=== PATIENT | male | born 1960 | race African-American/Black ===

== ENCOUNTER 2016-11-18 17:57 | Inpatient (IN) | payer BC ==
--- NOTE | 2016-11-18 18:08 | PCM.HP ---
H&P History of Present Illness - General Date of Service: 11/18/16 Admit Problem/Dx: Weakness Source of Information: Patient, Family, Old Records, Provider, RN Notes Reviewed History Limitations: Reports: Physical Impairment - History of Present Illness Initial Comments - Free Text/Narative: This is a 56-year-old black male with past medical history of hypertension history of hypertension and pre-diabetes urinary frequency who comes in with c/ o three-week history of generalized weakness. His chief of complaint is associated with fatigue, 12 pound weight loss and rapid heart rate. Patient was initially seen at the local clinic today and he was found to be septic sepsis. Patient carries a history of slow non-healing skin/soft tissue infection that has been going on for 6 months now. He has been on numerous oral antibiotics along with outpatient wound care. Per daughter who was present at bedside, patient is stubborn and he doesn't follow routine medical care. His initial workup at the clinic shows a CBC remarkable for white blood cell count of 3.5, RBC of 3.29, hemoglobin of 9, hematocrit of 27.1, and platelet count of 157. His chemistry is remarkable for sodium of 132, BUN of 43, creatinine 1.9, total protein of 9.2, albumin of 2.7, 88 ALT of 102, and AST of 108. His CRP is 1.4. Urinalysis is not impressive to suggest urinary tract infection however it has 3+ protein. His EKG from the clinic shows sinus tachycardia with a heart rate of 116. Patient was sent over to us from the clinic as a direct admit for sepsis secondary to non-healing left arm wound. Patient will be admitted to Med-Surg floor with telemetry. He is full code. - Related Data Allergies/Adverse Reactions: Allergies Allergy/AdvReac Type Severity Reaction Status Date / Time No Known Drug Allergies Allergy Other Verified 11/18/16 18:12 Home Medications: Home Meds amLODIPine [Norvasc] 5 mg PO BEDTIME 11/18/16 [History] metFORMIN [Glucophage] 500 mg PO WITHDINNER 11/18/16 [History] traMADol HCl [Tramadol HCl] 50 mg PO DAILY 11/18/16 [History] H&P Review of Systems - Review of Systems: Review Of Systems: See Below General: Reports: Weakness, Fatigue, Weight Loss. Denies: Fever, Chills HEENT: Reports: No Symptoms Pulmonary: Denies: Shortness of Breath Cardiovascular: Denies: Chest Pain Gastrointestinal: Denies: Abdominal Pain, Nausea, Vomiting Genitourinary: Denies: No Symptoms Musculoskeletal: Reports: Arm Pain, Muscle Pain. Denies: No Symptoms Skin: Reports: Erythema, Wound (open wound on left arm). Denies: Cyanosis, Jaundice Psychiatric: Denies: Depression, Anxiety, Agitation, Hallucinations Neurological: Reports: Weakness. Denies: Confusion, Dizziness, Seizure, Difficulty Walking, Gait Disturbance Hematologic/Lymphatic: Denies: Easy Bleeding, Easy Bruising Immunologic: Reports: No Symptoms Exam - Exam Exam: See Below - Exam General: Alert, Oriented, Cooperative, Mild Distress HEENT: Conjunctiva Clear, EOMI, Hearing Intact, Mucosa Moist & [place], Nares Patent, Normal Nasal Septum, Posterior Pharynx Clear, Pupils Equal, Pupils Reactive Neck: Supple, Trachea Midline, +2 Carotid Pulse wo Bruit, Full Range of Motion Lungs: Clear to Auscultation, Normal Respiratory Effort Cardiovascular: Regular Rate, Regular Rhythm Abdomen: Normal Bowel Sounds, Soft. No: Organomegaly, Tenderness (Male) Exam: Other (Non-tender pubic on palpation). No: Penile Lesions, Urethral Discharge Rectal (Males) Exam: Deferred Back Exam: Normal Inspection, Decreased Range of Motion Extremities: Normal Inspection, Normal Pulses, Calf Tenderness. No: Cyanosis, Edema Peripheral Pulses: 3+: Posterior Tibial (L), Posterior Tibial (R), Dorsalis Pedis (L), Dorsalis Pedis (R) Skin: Warm, Dry, Intact, Wound (left arm) Skin Alteration Location (Drawings Not To Scale): 1 - near the antecubital. 2.5 x 1.5 inch. 0.5- 1 cm depth. No odor. slight exudate. mild-moderate edema. unable to straighten his arm. red and warm. partial thickness. there is a coin like lesion above the wound Neuro Extensive - Mental Status: Oriented x3, Normal Cognition, Memory Intact Neuro Extensive - Motor, Sensory, Reflexes: CN II-XII Intact, Normal Gait Psychiatric: Alert, Normal Affect, Normal Mood - Patient Data Result Diagrams: 11/19/16 06:45 11/19/16 06:45 *Q Meaningful Use (ADM) - VTE *Q VTE Criteria *Q: - Stroke *Q Stroke Criteria *Q: - AMI *Q AMI Criteria *Q: Problem List Initiated/Reviewed/Updated: Yes Assessment/Plan Comment:: Assessment/Plan: Acute: Sepsis 2/2 Below - Fever, Tachycardia (HR 120s), Tachypneic and with borderline hypotension - EKG: Sinus Tachycardia with HR 116 - Bood Culture X 2 done at the clinic - Currently on IV fluids 500 mg NS x 1 - UA not impressive Chronic Non-Healing Wound on Left Arm - Has been going on for 6 months now - Has wound care outpatient and has been on numerous oral antibiotics - Started with a small "pimple and picked on " per daughter - PT for wound culture - Dietary consult to improve wound healing - IV Vancomycin for pharmacy to dose Anemia - No hx/o Anemia - Hgb 9 today - Baseline level 10.5 in Apr - Denies any GI complaints - PCP started initial work up: Iron panel, Folic Acid, B12, and LDH. Also peripheral blood smear. - Will order retic count in AM Weight Loss - 12 Lbs since last visit with PCP (1 week ago) - No issues with appetite - In the setting of Anemia, he needs to be scope (can be done as outpatient) - Will do guaiac test Renal Insufficiency/Chronic Kidney Disease - CR 1.9, no baseline level - He has 3+ protein on urine; Albumin ti 2.7 (low) - Cannot r/o hypertensive nephropathy vs renovascular hypertension - Urine random protein and 24 urine protein - May need to see a specialist Transaminitis - AST 108 and ALT 102 - No GI complaints - He denies chronic ETOH use - Will monitor Generalized Weakness - Likely 2/2 above Medical Non-compliance - Per daughter, stubborn and does not really go to the doctor routinely Chronic: HTN Pre-Diabetes, last A1C 6.2 per clinic notes Hx/o MRSA, will screen Hx/o Urinary Frequency Hx/o Cough with Blood Tinged Sputum (he comes from [facility], screen for TB he started having symptoms) Plan: Direct Admit to Med-Surg with Tele Routine AM Labs Guaiac Test HIV negative 4 years ago prior to entering the [place] per clinic document Need to re-screen for HIV Resume Home Meds PT/Dietary consult SW/CM for d/c planning Additional orders as above Code status:1 Patient is a poor historian and not very forthcoming. HPI obtained from clinic notes and daughter present at bedside.
[2016-11-18] MEDS ORDERED: Pneumococcal Polyvalent-23 Vaccine 0.5 ML SDV IM ONE (18:10)
[2016-11-18] MEDS ORDERED: Morphine 2 MG/ML Syringe ONE (18:16)
[2016-11-18] MEDS ORDERED: Morphine 2 MG/ML Syringe IVPUSH ONE (18:17)
[2016-11-18] MEDS ORDERED: Temazepam 15 MG Cap PO PRN (18:23)
[2016-11-18] MEDS ORDERED: Promethazine 12.5 MG in Sodium Chloride 0.9% 50 ML IV PRN (18:23)
[2016-11-18] MEDS ORDERED: LORazepam 2 MG/ML MDV IV PRN (18:23)
[2016-11-18] MEDS ORDERED: Albuterol/Ipratropium 3.0-0.5 MG/3 ML Neb Soln NEB PRN (18:23)
[2016-11-18] MEDS ORDERED: hydrALAZINE 20 MG/ML SDV IVPUSH PRN (18:23)
[2016-11-18] MEDS ORDERED: Acetaminophen 325 MG Tab PO PRN (18:23)
[2016-11-18] MEDS ORDERED: Metoprolol Tartrate 5 MG/5 ML SDV IVPUSH PRN (18:23)
[2016-11-18] MEDS ORDERED: Bisacodyl 5 MG Tab PO PRN (18:23)
[2016-11-18] MEDS ORDERED: Acetaminophen/HYDROcodone 325-5 MG Tab PO PRN (18:23)
[2016-11-18] MEDS ORDERED: Ondansetron 4 MG/2 ML SDV IV PRN (18:23)
[2016-11-18] MEDS ORDERED: HYDROmorphone 1 MG/ML Syringe IVPUSH PRN (18:23)
[2016-11-18] MEDS ORDERED: Polyethylene Glycol 3350 Powder 17 GM Packet PO PRN (18:23)
[2016-11-18] MEDS ORDERED: Vancomycin 1 GM, Vancomycin 500 MG in Sodium Chloride 0.9% 500 ML IV ONE (20:00)
[2016-11-18] MEDS: Lactated Ringers 1,000 ML IV SCH (20:15)
[2016-11-18] MEDS: Heparin Sodium 5,000 Units/ML Vial SUBCUT SCH (20:18)
[2016-11-19] MEDS: Heparin Sodium 5,000 Units/ML Vial SUBCUT SCH ×2 (03:15→12:49)
[2016-11-19] MEDS: Lactated Ringers 1,000 ML IV SCH ×2 (04:13→14:06)
[2016-11-19] MEDS ORDERED: Tuberculin, PPD 5 Units/0.1 ML 1 ML MDV IDERM ONE (08:30)
[2016-11-19] MEDS ORDERED: Multivitamins,Therapeutic Tab PO SCH (09:00)
--- NOTE | 2016-11-19 12:56 | CR ---
Chest: Two views of the chest were obtained. Comparison: No previous study. Heart is slightly enlarged. Upper mediastinum is within normal limits. Pulmonary vessels appear mildly congested. Slight atelectasis is noted within the left base. No pleural effusions are seen. Impression: 1. Cardiomegaly and mild pulmonary vascular congestion. 2. Mild left basilar atelectasis. Diagnostic code #3
--- NOTE | 2016-11-19 13:35 | MR ---
MRI left forearm Technique: Study was obtained slightly proximal to the radial capitellar joint distally to about the junction of the mid and proximal one third diaphysis. T1 and various T2 and T2 fat-suppressed sequences were obtained. Findings: Skin defect is seen laterally within the upper forearm. Mild underlying edema is seen. This does not extend into the muscle and presumably represents a superficial wound. Please correlate. No muscle edema is seen. No bone marrow edema is identified. Common flexor and extensor tendons have an unremarkable attachment. No joint effusion is seen. Distal biceps tendon shows normal attachment to the radius. Lateral and medial collateral ligaments are felt to be unremarkable. Impression: 1. Skin defect with underlying edema which does not extend into the adjacent muscle. No focal abscess is seen. This is noted along the radial side of the proximal forearm. 2. Other portions of the MRI study of the proximal forearm and distal elbow are unremarkable. Diagnostic code #2
[2016-11-19 15:14] VITALS: BP 107/60
--- NOTE | 2016-11-19 16:22 | PCM.DCSUM1 ---
Discharge Summary - Hospital Course Brief History: This is a 56-year-old black male with past medical history of hypertension and pre-diabetes urinary frequency who comes in with c/o three- week history of generalized weakness associated with fatigue, 12 pound weight loss and rapid heart rate. He was admitted for Sepsis and a non-healing infected left arm wound. - Discharge Data Discharge Date: 11/19/16 Discharge Disposition: DC/Tfer to Acute Hospital 02 Condition: Fair - Discharge Diagnosis/Problem(s) (1) Sepsis affecting skin SNOMED Code(s): 927629218 Status: Acute (2) Infected open wound SNOMED Code(s): 16332907 ICD Code: T14.8 - OTHER INJURY OF UNSPECIFIED BODY REGION; L08.9 - LOCAL INFECTION OF THE SKIN AND SUBCUTANEOUS TISSUE, UNSP Status: Chronic (3) HIV positive SNOMED Code(s): 039262921 Status: Acute (4) Anemia SNOMED Code(s): 295374110 Status: Acute Qualifiers: Anemia type: unspecified type Qualified Code(s): D64.9 - Anemia, unspecified (5) Renal insufficiency SNOMED Code(s): 608140439, 841245747 Status: Acute - Patient Summary/Data Operative Procedure(s) Performed: None Complications: None Consults: Consultations 11/18/16 18:35 Consult to Case Management [CONS] Routine Consult to Laboratory Technologist [CONS] Routine PT Evaluation and Treatment [CONS] Routine 11/18/16 18:59 Consult to Dietary [Consult to Control Panel Tester] [CONS] Routine Hospital Course: Patient was primarily admitted for Sepsis due to left arm wound infection. He was initially seen at the clinic but he came in as a direct for further management. Patient caries no significant past medical hx/o except for a well controlled hypertension. On admission, patient was put on sepsis protocol and he received intravenous vancomycin for his wound given his hx/o MRSA. Overnight patient started to cough up with blood tinged sputum and polygraph technician , he was immediately screened for TB/HIV and placed on isolation precautions. This morning HIV screening came back positive and his Hgb level dropped to 7.9 from 9 on admission. Patient also report having difficulty swallowing. We checked him orally but could not appreciate any fungal infection. He was however able to drink or eat but not much. His blood pressure was stable but he was mildly tachycardic and feverish with at temperature of 38.2 His hospital course was complicated by the new finding of HIV pos awaiting final confirmation. At this point, we felt patient has AIDS given his constellation of symptoms of weakness, fatigue, fever, anemia and significant weight loss (over 30 lbs per daughter). We called [facility] for upper level of care. Spoke with Dr. Summers who agreed to take patient in under her services. Dr. Gregory, will be on board for further management of patient's infectious disease. Prior to discharge, patient was informed about his abnormal HIV screening test. - Patient Instructions Diet: Usual Diet as Tolerated Activity: Bedrest Driving: Do Not Drive Showering/Bathing: May Shower Notify Provider of: Fever, Increased Pain, Swelling and Redness, Drainage, Nausea and/or Vomiting Other/Special Instructions: - Transfer to [facility] under the services of Dr. Summers, Hospitalist and Dr. Gregory, ID. - Isolation Precaution for TB and MRSA - Discharge Plan Home Medications: Home Meds Azithromycin [Z-Tristan] 250 mg PO ASDIRECTED #1 dosepk 08/23/15 [Rx] Lisinopril/Hydrochlorothiazide [Lisinopril-Hctz 20-12.5 mg Tab] 1 each PO DAILY 08/23/15 [History] amLODIPine [Norvasc] 5 mg PO DAILY 08/23/15 [History] Promethazine [Phenergan] 25 mg PO Q6H PRN #10 tablet 08/24/15 [Rx] amLODIPine [Norvasc] 5 mg PO BEDTIME 11/18/16 [History] metFORMIN [Glucophage] 500 mg PO WITHDINNER 11/18/16 [History] traMADol HCl [Tramadol HCl] 50 mg PO DAILY 11/18/16 [History] - Discharge Summary/Plan Comment DC Time >30 min.: Yes (1 hr) Discharge Summary/Plan Comment: Transfer to under the services of Dr. Summers, Hospitalist and Dr. Gregory, Infectious Disease - General Info Date of Service: 11/19/16 Admission Dx/Problem (Free Text: Weakness Subjective Update: Follow up Functional Status: Reports: pain controlled, tolerating diet, new symptoms. Denies: ambulating, urinating - Review of Systems General: Reports: Fever, Weakness, Fatigue. Denies: Chills HEENT: Reports: no symptoms Pulmonary: Denies: shortness of breath Cardiovascular: Denies: Chest Pain Gastrointestinal: Denies: Abdominal pain, Nausea, Vomiting Genitourinary: Reports: no symptoms Musculoskeletal: Reports: no symptoms Skin: Denies: jaundice, pruritis, rash Neurological: Denies: Confusion, Difficulty Walking, Weakness, Gait Disturbance Psychiatric: Denies: depression, anxiety, cravings, hallucinations Systems Review Comment: No overnight or acute issues. - Patient Data Vitals - Most Recent: Last Vital Signs Temp 37.9 C 11/19/16 15:07 Pulse 92 11/19/16 15:07 Resp 16 11/19/16 15:07 BP 107/60 11/19/16 15:07 Pulse Ox 95 11/19/16 15:07 Weight - Most Recent: 75.16 kg I&O - Last 24 hours: Intake & Output 11/19/16 11/19/16 11/19/16 06:59 14:59 22:59 Intake Total 2175 240 Balance 2175 240 Lab Results - Last 24 hrs: Laboratory Results - last 24 hr 11/18/16 11/18/16 11/18/16 Range/Units 19:47 22:15 23:50 WBC (4.23-9.07) K/mm3 RBC (4.63-6.08) M/mm3 Hgb (13.7-17.5) gm/L Hct (40.1-51.0) % MCV (79.0-92.2) fl MCH (25.7-32.2) pg MCHC (32.2-35.5) g/dl RDW Std Deviation (35.1-43.9) fL Plt Count (163-337) K/mm3 MPV (9.4-12.3) fl Neut % (Auto) (34.0-67.9) % Lymph % (Auto) (21.8-53.1) % Nuckolls % (Auto) (5.3-12.2) % Eos % (Auto) (0.8-7.0) Baso % (Auto) (0.1-1.2) % Neut # (Auto) (1.78-5.38) K/mm3 Lymph # (Auto) (1.32-3.57) K/mm3 Nuckolls # (Auto) (0.30-0.82) K/mm3 Eos # (Auto) (0.04-0.54) K/mm3 Baso # (Auto) (0.01-0.08) K/mm3 Manual Slide Review Percent Retic (0.51-1.81) % Sodium (136-145) mEq/L Potassium (3.5-5.1) mEq/L Chloride (98-107) mEq/L Carbon Dioxide (21-32) mEq/L Anion Gap (5-15) BUN (7-18) mg/dL Creatinine (0.7-1.3) mg/dL Est Cr Clr Drug Dosing mL/min Estimated GFR (MDRD) (>60) mL/min BUN/Creatinine Ratio (14-18) Glucose (74-106) mg/dL Lactic Acid 0.7 (0.4-2.0) mmol/L Calcium (8.5-10.1) mg/dL Magnesium (1.8-2.4) mg/dl Total Bilirubin (0.2-1.0) mg/dL Direct Bilirubin (0.0-0.2) mg/dl Indirect Bilirubin AST (15-37) U/L ALT (16-63) U/L Alkaline Phosphatase (46-116) U/L C-Reactive Protein (<1.0) mg/dL Total Protein (6.4-8.2) g/dl Albumin (3.4-5.0) g/dl Globulin gm/dL Albumin/Globulin Ratio (1-2) U Random Total Protein 136.3 H (0.0-11.8) mg/dL HIV-1 Ab Rapid Screen (NEGATIVE) MRSA (PCR) Positive H 11/19/16 11/19/16 11/19/16 Range/Units 06:45 06:45 06:45 WBC 2.86 L (4.23-9.07) K/mm3 RBC 2.89 L (4.63-6.08) M/mm3 Hgb 7.9 L (13.7-17.5) gm/L Hct 23.8 L (40.1-51.0) % MCV 82.4 (79.0-92.2) fl MCH 27.3 (25.7-32.2) pg MCHC 33.2 (32.2-35.5) g/dl RDW Std Deviation 46.0 H (35.1-43.9) fL Plt Count 134 L (163-337) K/mm3 MPV 11.6 (9.4-12.3) fl Neut % (Auto) 62.4 (34.0-67.9) % Lymph % (Auto) 22.0 (21.8-53.1) % Nuckolls % (Auto) 8.0 (5.3-12.2) % Eos % (Auto) 7.3 H (0.8-7.0) Baso % (Auto) 0.3 (0.1-1.2) % Neut # (Auto) 1.78 (1.78-5.38) K/mm3 Lymph # (Auto) 0.63 L (1.32-3.57) K/mm3 Nuckolls # (Auto) 0.23 L (0.30-0.82) K/mm3 Eos # (Auto) 0.21 (0.04-0.54) K/mm3 Baso # (Auto) 0.01 (0.01-0.08) K/mm3 Manual Slide Review Abnormal smear Percent Retic 0.95 (0.51-1.81) % Sodium 136 (136-145) mEq/L Potassium 4.3 (3.5-5.1) mEq/L Chloride 106 (98-107) mEq/L Carbon Dioxide 21 (21-32) mEq/L Anion Gap 13.3 (5-15) BUN 35 H (7-18) mg/dL Creatinine 1.4 H (0.7-1.3) mg/dL Est Cr Clr Drug Dosing 57.68 mL/min Estimated GFR (MDRD) > 60 (>60) mL/min BUN/Creatinine Ratio 25.0 H (14-18) Glucose 95 (74-106) mg/dL Lactic Acid (0.4-2.0) mmol/L Calcium 8.3 L (8.5-10.1) mg/dL Magnesium 2.0 (1.8-2.4) mg/dl Total Bilirubin 0.4 (0.2-1.0) mg/dL Direct Bilirubin 0.10 (0.0-0.2) mg/dl Indirect Bilirubin 0.30 AST 92 H (15-37) U/L ALT 84 H (16-63) U/L Alkaline Phosphatase 78 (46-116) U/L C-Reactive Protein 1.2 H* (<1.0) mg/dL Total Protein 8.0 (6.4-8.2) g/dl Albumin 2.3 L (3.4-5.0) g/dl Globulin 5.7 gm/dL Albumin/Globulin Ratio 0.4 L (1-2) U Random Total Protein (0.0-11.8) mg/dL HIV-1 Ab Rapid Screen Positive H (NEGATIVE) MRSA (PCR) JOSE JUAN Results - Last 24 hrs: Microbiology 11/19/16 12:35 Gram Stain - Final Sputum - Expectorated 11/18/16 18:38 Wound Culture - Preliminary Arm, Left - Lower (Mrsa) Staphylococcus Aureus Med Orders - Current: Current Medications Acetaminophen (Tylenol) 650 mg PO Q4H PRN PRN Reason: Pain (Mild 1-3)/fever Last Admin: 11/19/16 13:14 Dose: 650 mg Hydrocodone Bitart/Acetaminophen ([place] 325-5 Mg) 1 tab PO Q4H PRN PRN Reason: Pain (moderate 4-6) Last Admin: 11/18/16 23:49 Dose: 1 tab Albuterol/Ipratropium (Duoneb 3.0-0.5 Mg/3 Ml) 3 ml NEB Q4H PRN PRN Reason: Shortness Of Breath/wheezing Amlodipine Besylate (Norvasc) 5 mg PO BEDTIME KATELYN Bisacodyl (Dulcolax) 5 mg PO DAILY PRN PRN Reason: Constipation Heparin Sodium (Porcine) (Heparin Sodium) 5,000 units SUBCUT Q8H [facility] Last Admin: 11/19/16 12:49 Dose: 5,000 units Hydralazine HCl (Apresoline) 20 mg IVPUSH Q4H PRN PRN Reason: Hypertension Hydromorphone HCl (Dilaudid) 1 mg IVPUSH Q4H PRN PRN Reason: Pain (severe 7-10) Promethazine HCl 12.5 mg/ (Sodium Chloride) 50.5 mls @ 100 mls/hr IV Q6H PRN PRN Reason: Nausea/Vomiting Vancomycin HCl 1 gm/Vancomycin HCl 500 mg/ Sodium Chloride 500 mls @ 250 mls/ hr IV Q24H KATELYN Lorazepam (Ativan) 1 mg IV Q6H PRN PRN Reason: Anxiety Metoprolol Tartrate (Lopressor) 5 mg IVPUSH Q4H PRN PRN Reason: Tachycardia Multivitamins (Thera) 1 each PO DAILY [facility] Last Admin: 11/19/16 08:36 Dose: 1 each Ondansetron HCl (Zofran) 4 mg IV Q6H PRN PRN Reason: Nausea/Vomiting Polyethylene Glycol (Miralax) 17 gm PO DAILY PRN PRN Reason: Constipation Senna/Docusate Sodium (Senna Plus) 1 tab PO BID PRN PRN Reason: Constipation Temazepam (Restoril) 15 mg PO BEDTIME PRN PRN Reason: Sleep Last Admin: 11/19/16 13:16 Dose: 15 mg Vancomycin HCl (Pharmacy To Dose - Vancomycin) 0 dose .XX ASDIRECTED PRN PRN Reason: RX TO DOSE IV VANCOMYCIN Discontinued Medications Lactated Ringer's (Ringers, Lactated) 1,000 mls @ 125 mls/hr IV ASDIRECTED [facility] Last Infusion: 11/19/16 12:13 Dose: Infused Vancomycin HCl 1 gm/Vancomycin HCl 500 mg/ Sodium Chloride 500 mls @ 333 mls/ hr IV ONETIME ONE Stop: 11/18/16 21:30 Last Admin: 11/18/16 20:18 Dose: 333 mls/hr Morphine Sulfate (Morphine) 1 mg IVPUSH ONETIME ONE Stop: 11/18/16 18:18 Last Admin: 11/18/16 18:59 Dose: 1 mg Morphine Sulfate (Morphine) Confirm Administered Dose 2 mg .ROUTE .STK-MED ONE Stop: 11/18/16 18:17 Last Admin: 11/18/16 19:00 Dose: Not Given Pneumococcal Polyvalent Vaccine (Pneumovax 23) 0.5 ml IM .ONCE ONE Stop: 11/18/16 18:11 Tuberculin PPD (Aplisol) 5 unit IDERM ONETIME ONE Stop: 11/19/16 08:31 Last Admin: 11/19/16 08:40 Dose: Not Given - Exam General: Reports: alert, oriented, cooperative, no acute distress HEENT: Reports: Pupils equal, Pupils reactive, EOMI, Mucous membr. moist/pink Neck: Reports: supple, trachea midline, no JVD Lungs: Reports: Clear to auscultation, Normal respiratory effort Cardiovascular: Reports: Tachycardia. Denies: Murmurs Abdomen: Reports: bowel sounds present, soft, no tenderness, no distension (Male) Exam: Deferred Rectal (Males) Exam: Deferred Back Exam: Reports: Normal Inspection, Decreased Range of Motion Extremities: Reports: no edema, normal pulses, no tenderness/swelling, no clubbing, no cyanosis, no calf tenderness Skin: Reports: warm, dry, intact Wound/Incisions: Reports: dressing dry and intact, no drainage, erythema Neurological: Reports: no new focal deficit Psy/Mental Status: Reports: alert, normal affect, normal mood *Q Meaningful Use (DIS) - VTE *Q VTE Criteria *Q: - Stroke *Q Stroke Criteria *Q: - AMI *Q AMI Criteria *Q:
[2016-11-19] MEDS ORDERED: Sodium Chloride 0.9% 1,000 ML IV SCH (18:00)
[2016-11-19] MEDS ORDERED: Vancomycin 1 GM, Vancomycin 500 MG in Sodium Chloride 0.9% 500 ML IV SCH (20:00)
[2016-11-19] MEDS ORDERED: amLODIPine 5 MG Tab PO SCH (21:00)
== END 2016-11-19 19:03 | DRG 720 ==
LOC: MERGE 17:57 → JD.MS 17:57
PROVIDERS: ADMIT Internal Medicine; ATTEND Internal Medicine
DX: A41.9 Sepsis, unspecified organism (principal); S41.102A Unspecified open wound of left upper arm, initial encounter; Z21 Asymptomatic human immunodeficiency virus [HIV] infection status; D64.9 Anemia, unspecified; N28.9 Disorder of kidney and ureter, unspecified; R04.2 Hemoptysis; R63.4 Abnormal weight loss; L08.9 Local infection of the skin and subcutaneous tissue, unspecified; I10 Essential (primary) hypertension; Z86.14 Personal history of Methicillin resistant Staphylococcus aureus infection; R13.10 Dysphagia, unspecified; R35.0 Frequency of micturition; R74.0 Nonspecific elevation of levels of transaminase and lactic acid dehydrogenase [LDH]; Z23 Encounter for immunization
CPT/HCPCS: 36415; 71020; 71020-26; 73218-26-LT; 73218-LT; 80048; 80076; 83605; 83735; 84156; 85025; 85045; 86140; 86480; 86701; 86702; 87015; 87070; 87077; 87116; 87184; 87186; 87205; 87206; 87390; 87449; 87641; 97161-GP; 97530-GP; A9270-GY; G0475; J1644; J2270; J3370; J7040; J7120

== ENCOUNTER 2016-12-13 19:10 | Emergency (ER) | payer BC ==
[2016-12-13] MEDS ORDERED: Sodium Chloride 0.9% 1,000 ML IV ONE ×2 (20:02→22:16)
[2016-12-13] MEDS ORDERED: Sodium Chloride 0.9% 10 ML Syringe FLUSH PRN (20:03)
[2016-12-13] MEDS ORDERED: HYDROmorphone 0.5 MG/0.5 ML Syringe IVPUSH ONE (21:48)
[2016-12-13] MEDS ORDERED: Calcium Gluconate 10% 1 GM/10 ML SDV IVPUSH ONE (21:51)
[2016-12-13] MEDS ORDERED: Insulin Regular, Human 100 Units/ML 3 ML Vial IV ONE (21:51)
[2016-12-13] MEDS ORDERED: 50% Dextrose in Water 50 ML Syringe IVPUSH STA (21:51)
[2016-12-13] MEDS ORDERED: Albuterol 0.083% 2.5 MG/3 ML Neb Soln NEB ONE ×3 (21:51→22:10)
[2016-12-13] MEDS ORDERED: Sodium Bicarbonate 8.4% 50 MEQ/50 ML Syringe IVPUSH ONE (21:51)
--- NOTE | 2016-12-13 22:03 | EDM.PDOC ---
ED HPI GENERAL MEDICAL PROBLEM - General Chief Complaint: Gastrointestinal Problem Stated Complaint: VOMITING, Time Seen by Provider: 12/13/16 19:40 Source of Information: Reports: Patient, Family History Limitations: Reports: No Limitations - History of Present Illness INITIAL COMMENTS - FREE TEXT/NARRATIVE: 56-year-old male is brought in by his daughters for evaluation treatment of vomiting. History is provided by both the patient and his daughters. Reports that he was diagnosed with HIV the end of October. He was sent to [facility]. Since returning home from the hospital he has been feeling okay. He states on Wednesday began to not feel well and nauseated. On Wednesday he had one episode of vomiting. He had 2 episodes today. He also reports diarrhea but has not been unable to quantify how much he has. He is also complaining of bilateral feet pain. Unsure if he's had any fevers. Denies any chest pain, shortness of breath, abdominal pain, dysuria or hematuria. Patient reports that he contacted his infectious disease doctor Dr. kohler yesterday. He was instructed to stop all his medications. States today he did not feel much better thus his daughters decided to bring him in. - Related Data Allergies Allergy/AdvReac Type Severity Reaction Status Date / Time No Known Drug Allergies Allergy Other Verified 11/18/16 18:12 Home Meds: Home Meds . [No Known Home Meds] 12/13/16 [History] Past Medical History HEENT History: Reports: Other (See Below) Other HEENT History: wears glasses Cardiovascular History: Reports: Hypertension Genitourinary History: Reports: Other (See Below) Other Genitourinary History: Kidney failure in 2016 due to overwork per MD Endocrine/Metabolic History: Reports: Diabetes, Type II Other Endocrine/Metabolic History: pre-diabetic. Immunologic History: Reports: HIV - Infectious Disease History Infectious Disease History: Reports: MRSA, Other (See Below) Other Infectious Disease History: Strep throat in 2016; MRSA positive 11/18/2016. - Past Surgical History HEENT Surgical History: Reports: None Endocrine Surgical History: Reports: None Social & Family History - Family History Family Medical History: Noncontributory - Tobacco Use Smoking Status *Q: Never Smoker Second Hand Smoke Exposure: No - Caffeine Use Caffeine Use: Reports: Coffee, Energy Drinks, Soda, Tea - Recreational Drug Use Recreational Drug Use: No ED ROS GENERAL - Review of Systems Review Of Systems: See Below Constitutional: Reports: Malaise. Denies: Fever (unsure) Respiratory: Denies: Shortness of Breath Cardiovascular: Denies: Chest Pain GI/Abdominal: Reports: Diarrhea, Nausea, Vomiting (x2 today and x1 yesterday). Denies: Abdominal Pain : Reports: No Symptoms. Denies: Dysuria Musculoskeletal: Reports: Foot Pain (bilateral ) ED EXAM, GI/ABD - Physical Exam Exam: See Below Exam Limited By: No Limitations General Appearance: Alert, WD/WN, No Apparent Distress, Thin Respiratory/Chest: No Respiratory Distress, Lungs Clear, Normal Breath Sounds Cardiovascular: Normal Peripheral Pulses, No Murmur, Tachycardia GI/Abdominal Exam: Normal Bowel Sounds, Soft, Non-Tender Neurological: Alert, Oriented Psychiatric: Normal Mood Skin Exam: Warm, Dry, Normal Color EKG INTERPRETATION EKG Date: 12/13/16 Time: 10:10 Rate (Beats/Min): 121 Fischer: Normal P-Wave: Present QRS: Normal ST-T: Normal QT: Normal EKG Interpretation Comments: Peaked t waves. Sinus tachycardia at 121 bpm. Reviewed by myself and Dr. Lg Pugh Course - Vital Signs Last Recorded V/S: Last Vital Signs Temp 36.8 C 12/13/16 19:27 Pulse 118 H 12/13/16 19:27 Resp 20 12/13/16 19:27 BP 133/101 H 12/13/16 19:27 Pulse Ox 97 12/13/16 19:27 - Orders/Labs/Meds Orders: Active Orders 24 hr Category Date Time Status Cardiac Monitoring [RC] . DIRECTED Care 12/13/16 20:03 Active EKG 12 Lead [EKG Documentation Completion] [RC] STAT Care 12/13/16 21:42 Active Peripheral IV Care [RC] . DIRECTED Care 12/13/16 20:03 Active RT Aerosol Therapy [RC] ASDIRECTED Care 12/13/16 21:52 Active RT Aerosol Therapy [RC] ASDIRECTED Care 12/13/16 22:10 Active RT Aerosol Therapy [RC] ASDIRECTED Care 12/13/16 22:10 Active Chest 2V [CR] Stat Exams 12/13/16 20:01 Taken CULTURE BLOOD [BC] Stat Lab 12/13/16 21:00 Received CULTURE BLOOD [BC] Stat Lab 12/13/16 21:34 Received CULTURE URINE [RM] Stat Lab 12/13/16 20:01 Uncollected UA W/MICROSCOPIC [URIN] Stat Lab 12/13/16 20:03 Uncollected Sodium Chloride 0.9% [Normal Saline] 1,000 ml Med 12/13/16 22:16 Ordered IV ONETIME Sodium Chloride 0.9% [Saline Flush] Med 12/13/16 20:03 Active 10 ml FLUSH ASDIRECTED PRN Blood Culture x2 Reflex Set [OM.PC] Stat Oth 12/13/16 20:01 Ordered Peripheral IV Insertion Adult [OM.PC] Routine Oth 12/13/16 20:02 Ordered Medication Orders Sodium Chloride (Normal Saline) 1,000 mls @ 999 mls/hr IV ONETIME ONE Stop: 12/13/16 23:16 Sodium Chloride (Saline Flush) 10 ml FLUSH ASDIRECTED PRN PRN Reason: Keep Vein Open Last Admin: 12/13/16 20:43 Dose: 10 ml Labs: Laboratory Tests 12/13/16 12/13/16 12/13/16 Range/Units 20:40 20:40 20:40 WBC 3.37 L (4.23-9.07) K/mm3 RBC 2.90 L (4.63-6.08) M/mm3 Hgb 7.9 L (13.7-17.5) gm/L Hct 23.7 L (40.1-51.0) % MCV 81.7 (79.0-92.2) fl MCH 27.2 (25.7-32.2) pg MCHC 33.3 (32.2-35.5) g/dl RDW Std Deviation 50.3 H (35.1-43.9) fL Plt Count 79 L (163-337) K/mm3 MPV 11.0 (9.4-12.3) fl Neutrophils % (Manual) 63 H (40-60) % Band Neutrophils % 0 (0-10) % Lymphocytes % (Manual) 36 (20-40) % Atypical Lymphs % 0 % Monocytes % (Manual) 1 L (2-10) % Eosinophils % (Manual) 0 L (0.8-7.0) % Basophils % (Manual) 0 L (0.2-1.2) Platelet Estimate Decreased Plt Morphology Comment Normal Hypochromasia 1+ slight Poikilocytosis 1+ slight Microcytosis 1+ slight RBC Morph Comment Not Reportable Sodium 139 (136-145) mEq/L Potassium 7.2 H* (3.5-5.1) mEq/L Chloride 110 H (98-107) mEq/L Carbon Dioxide 10 L (21-32) mEq/L Anion Gap 26.2 H (5-15) BUN 107 H (7-18) mg/dL Creatinine 17.6 H (0.7-1.3) mg/dL Est Cr Clr Drug Dosing 4.72 mL/min Estimated GFR (MDRD) 3 (>60) mL/min BUN/Creatinine Ratio 6.1 L (14-18) Glucose 107 H (74-106) mg/dL Lactic Acid (0.4-2.0) mmol/L Calcium 9.3 (8.5-10.1) mg/dL Magnesium 2.7 H (1.8-2.4) mg/dl Total Bilirubin 0.4 (0.2-1.0) mg/dL AST 49 H (15-37) U/L ALT 36 (16-63) U/L Alkaline Phosphatase 101 (46-116) U/L C-Reactive Protein 2.4 H* (<1.0) mg/dL Total Protein 8.8 H (6.4-8.2) g/dl Albumin 2.6 L (3.4-5.0) g/dl Globulin 6.2 gm/dL Albumin/Globulin Ratio 0.4 L (1-2) //17 Range/Units 21:00 WBC (4.23-9.07) K/mm3 RBC (4.63-6.08) M/mm3 Hgb (13.7-17.5) gm/L Hct (40.1-51.0) % MCV (79.0-92.2) fl MCH (25.7-32.2) pg MCHC (32.2-35.5) g/dl RDW Std Deviation (35.1-43.9) fL Plt Count (163-337) K/mm3 MPV (9.4-12.3) fl Neutrophils % (Manual) (40-60) % Band Neutrophils % (0-10) % Lymphocytes % (Manual) (20-40) % Atypical Lymphs % % Monocytes % (Manual) (2-10) % Eosinophils % (Manual) (0.8-7.0) % Basophils % (Manual) (0.2-1.2) Platelet Estimate Plt Morphology Comment Hypochromasia Poikilocytosis Microcytosis RBC Morph Comment Sodium (136-145) mEq/L Potassium (3.5-5.1) mEq/L Chloride (98-107) mEq/L Carbon Dioxide (21-32) mEq/L Anion Gap (5-15) BUN (7-18) mg/dL Creatinine (0.7-1.3) mg/dL Est Cr Clr Drug Dosing mL/min Estimated GFR (MDRD) (>60) mL/min BUN/Creatinine Ratio (14-18) Glucose (74-106) mg/dL Lactic Acid 0.3 L (0.4-2.0) mmol/L Calcium (8.5-10.1) mg/dL Magnesium (1.8-2.4) mg/dl Total Bilirubin (0.2-1.0) mg/dL AST (15-37) U/L ALT (16-63) U/L Alkaline Phosphatase (46-116) U/L C-Reactive Protein (<1.0) mg/dL Total Protein (6.4-8.2) g/dl Albumin (3.4-5.0) g/dl Globulin gm/dL Albumin/Globulin Ratio (1-2) Meds: Medications Generic Name Dose Route Start Last Admin Trade Name Freq PRN Reason Stop Dose Admin Sodium Chloride 1,000 mls @ 999 mls/hr 12/13/16 22:16 Normal Saline IV 12/13/16 23:16 ONETIME ONE Sodium Chloride 10 ml 12/13/16 20:03 12/13/16 20:43 Saline Flush FLUSH 10 ml ASDIRECTED PRN Administration Keep Vein Open Discontinued Medications Generic Name Dose Route Start Last Admin Trade Name Freq PRN Reason Stop Dose Admin Albuterol 5 mg 12/13/16 21:51 12/13/16 22:06 Proventil [facility] 12/13/16 21:52 5 mg ONETIME ONE Administration Albuterol 5 mg 12/13/16 22:10 12/13/16 22:21 Proventil Neb Solben [facility] 12/13/16 22:11 5 mg ONETIME ONE Administration Albuterol 5 mg 12/13/16 22:10 12/13/16 22:22 Proventil Neb Soln NEB 12/13/16 22:11 5 mg ONETIME ONE Administration Calcium Gluconate 1 gm 12/13/16 21:51 12/13/16 22:00 Calcium Gluconate IVPUSH 12/13/16 21:52 1 gm ONETIME ONE Administration Dextrose/Water 50 ml 12/13/16 21:51 12/13/16 22:00 Dextrose 50% In Water IVPUSH 12/13/16 21:52 50 ml NOW STA Administration Hydromorphone HCl 0.5 mg 12/13/16 21:48 12/13/16 21:57 Dilaudid IVPUSH 12/13/16 21:49 0.5 mg ONETIME ONE Administration Sodium Chloride 1,000 mls @ 999 mls/hr 12/13/16 20:02 12/13/16 20:42 Normal Saline IV 12/13/16 21:02 100 mls/hr ONETIME ONE Administration Insulin Human Regular 10 unit 12/13/16 21:51 12/13/16 22:00 Humulin R IV 12/13/16 21:52 10 units ONETIME ONE Administration Sodium Bicarbonate 50 meq 12/13/16 21:51 12/13/16 22:00 Sodium Bicarbonate 8.4% IVPUSH 12/13/16 21:52 50 meq ONETIME ONE Administration - Radiology Interpretation Free Text/Narrative:: chest xray shows no acute intrathoracic process. - Re-Assessments/Exams Free Text/Narrative Re-Assessment/Exam: 12/13/16 23:03 white blood cell count is 3.37, hemoglobin is 7.9 and platelets are 79. Sodium is 139, potassium 7.2 and chloride 110. Anion gap is 26.2. Creatinine is 17.6. Glucose is 107. Bicarbonate is 10. Magnesium is 2.7. CRP is 2.4. Upon receiving the critical lab value of potassium 7.2 An EKG was ordered. I consulted Dr. Lg Pugh. Recommended an amp of bicarbonate, an amp of D50, 10 units regular insulin, and amp of calcium gluconate and albuterol 15 mg continuous. Patient is too ill to be admitted to our hospital. Plan will be to send to [facility] in [place] as this was he was recently admitted. I spoke with the mud trucker, Dr. siu, recommended bolusing at least 2 L of normal saline in and giving 30 of Kayexalate. He also recommended obtaining an ultrasound of the kidneys to rule out hydronephrosis. He has been in reevaluating the patient 2 hours. I discussed this with our ER physician. Unfortunately we do not have the ability to reevaluate this patient 2 hours and feel would be danger the patient. We will like to send him to the ER. I spoke with ER physician, Dr. Miranda, at [facility] in [place]. He agrees to accept the patient. Patient will go by ground advanced through the ER. I spoke with Dr. Garza, ornamental iron worker apprentice systems development consultant. He recommended giving 3 A of bicarbonate at 250 an hour. Also recommended inserting Rdz catheter since we had not yet done so. Patient will be sent by ground admits to [facility] in [place]. Dr. Hall in the ER accepts in the patient. Departure - Departure Time of Disposition: 23:08 Disposition: DC/Tfer to Acute Hospital 02 Condition: Critical Clinical Impression: Acute renal failure, Hyperkalemia, HIV positive, Nausea & vomiting, Infected open wound - Discharge Information Forms: ED Department Discharge Additional Instructions: Patient to go by ambulance to [facility] in [place]. Patient will go through the ER. Dr. Miranda accepting. - My Orders Last 24 Hours: My Active Orders 12/13/16 20:01 Chest 2V [CR] Stat CULTURE URINE [RM] Stat Blood Culture x2 Reflex Set [OM.PC] Stat 12/13/16 20:02 Peripheral IV Insertion Adult [OM.PC] Routine 12/13/16 20:03 Cardiac Monitoring [RC] . DIRECTED Peripheral IV Care [RC] . DIRECTED UA W/MICROSCOPIC [URIN] Stat Sodium Chloride 0.9% [Saline Flush] 10 ml FLUSH ASDIRECTED PRN 12/13/16 21:00 CULTURE BLOOD [BC] Stat 12/13/16 21:34 CULTURE BLOOD [BC] Stat 12/13/16 21:42 EKG 12 Lead [EKG Documentation Completion] [RC] STAT 12/13/16 21:52 RT Aerosol Therapy [RC] ASDIRECTED 12/13/16 22:10 RT Aerosol Therapy [RC] ASDIRECTED RT Aerosol Therapy [RC] ASDIRECTED 12/13/16 22:16 Sodium Chloride 0.9% [Normal Saline] 1,000 ml IV ONETIME - Assessment/Plan Last 24 Hours: My Active Orders 12/13/16 20:01 Chest 2V [CR] Stat CULTURE URINE [RM] Stat Blood Culture x2 Reflex Set [OM.PC] Stat 12/13/16 20:02 Peripheral IV Insertion Adult [OM.PC] Routine 12/13/16 20:03 Cardiac Monitoring [RC] . DIRECTED Peripheral IV Care [RC] . DIRECTED UA W/MICROSCOPIC [URIN] Stat Sodium Chloride 0.9% [Saline Flush] 10 ml FLUSH ASDIRECTED PRN 12/13/16 21:00 CULTURE BLOOD [BC] Stat 12/13/16 21:34 CULTURE BLOOD [BC] Stat 12/13/16 21:42 EKG 12 Lead [EKG Documentation Completion] [RC] STAT 12/13/16 21:52 RT Aerosol Therapy [RC] ASDIRECTED 12/13/16 22:10 RT Aerosol Therapy [RC] ASDIRECTED RT Aerosol Therapy [RC] ASDIRECTED 12/13/16 22:16 Sodium Chloride 0.9% [Normal Saline] 1,000 ml IV ONETIME
[2016-12-13] MEDS ORDERED: Sodium Polystyrene Sulfonate 15 GM/60 ML Susp 60 ML Bot PO ONE (22:33)
[2016-12-13] MEDS ORDERED: Sodium Bicarbonate 150 MEQ in Dextrose 5% in Water 1,000 ML IV ONE ×2 (22:39)
[2016-12-13] MEDS ORDERED: Sodium Bicarbonate 8.4% 50 MEQ/50 ML Syringe ONE (22:51)
[2016-12-13] MEDS ORDERED: Dextrose 5% in Water 1,000 ML ONE (22:51)
[2016-12-13 23:29] VITALS: BP 123/61
--- NOTE | 2016-12-14 08:36 | CR ---
Chest: Two views of the chest were obtained. Comparison: Previous chest x-ray of 11/18/16. Heart size is normal. Tortuous thoracic aorta is seen. Lungs are clear with no acute infiltrates. Slight anterior wedge deformity is noted within T12 which appears old. Impression: 1. Nothing acute is appreciated on two-view chest x-ray. Diagnostic code #2
== END 2016-12-13 23:35 ==
LOC: JD.ED 19:10 → SUPCPDRO 19:10 → JD.ED 23:35
DX: N17.9 Acute kidney failure, unspecified (principal); E87.5 Hyperkalemia; I10 Essential (primary) hypertension; E11.9 Type 2 diabetes mellitus without complications; Z21 Asymptomatic human immunodeficiency virus [HIV] infection status
CPT/HCPCS: 36415; 51702; 71020; 80053; 81001; 83605; 83735; 85025; 86140; 87040; 87086; 93005; 94640; 94664; 96361; 96365; 96375; 99291; 99292; A9270; J0610; J1170; J1817; J7040; J7050; J7060; 99284

== ENCOUNTER 2017-01-19 10:59 | Emergency (ER) | payer BC ==
--- NOTE | 2017-01-19 11:28 | EDM.PDOC ---
ED HPI GENERAL MEDICAL PROBLEM - General Chief Complaint: Abdominal Pain Stated Complaint: SIDE PAIN Time Seen by Provider: 01/19/17 11:23 Source of Information: Reports: Patient, Family (daughter) History Limitations: Reports: Language Barrier (mild He is of descent. ) - History of Present Illness INITIAL COMMENTS - FREE TEXT/NARRATIVE: 56-year-old male who is known to be HIV positive/started on antiviral therapy within the last 6 weeks. Presents to the ED with diffuse right jose-abdominal pain radiating up towards his right shoulder. Associated nausea and vomiting. No diarrhea. Denies any flank pain. It's more lateral abdominal wall abdominal pain. Associated fever and chills. Recent appointment with Dr. Haskins infectious disease expert was January 06 and . No changes were made to his antiviral regime. Started this in November. He does have a cough. Not bringing up much phlegm. Hurts to deep breathe. No appetite at all. No pruritus. Currently rates his pain as a 6-7 out of 10 and constant. No history of renal stones. Onset: Gradual (Over the last 3 days.) Onset Date: 01/17/17 Duration: Day(s):, Getting Worse Location: Reports: Abdomen Quality: Reports: Ache, Stabbing, Other (Constant aching discomfort that occasionally is worsening i.e. mild colicky component to the pain) Severity: Severe (Rates his pain as 7 or 8 out of 10.) Improves with: Reports: None Worsens with: Reports: Movement Context: Denies: Activity (And deep breathing.), Exercise, Lifting, Sick Contact , Trauma, Other Associated Symptoms: Reports: Chest Pain, Cough, cough w sputum, Fever/Chills, Loss of Appetite, Malaise, Nausea/Vomiting, Weakness (Generalized particularly when he stands up. Has had very little oral intake for 2 days.). Denies: No Other Symptoms (Only with coughing), Confusion, Diaphoresis, Headaches, Seizure Treatments [employer]: Reports: Acetaminophen Right Abdominal Pain Score (Numeric/FACES): 9 - Related Data Allergies Allergy/AdvReac Type Severity Reaction Status Date / Time No Known Drug Allergies Allergy Other Verified 01/19/17 11:17 Home Meds: Home Meds Abacavir/Dolutegravir/Lamivudi [Triumeq Tablet] 1 tab PO DAILY 01/19/17 [History ] Amitriptyline [Elavil] 10 mg PO BEDTIME 01/19/17 [History] Ferrous Sulfate 325 mg PO DAILY 01/19/17 [History] Melatonin [Melatin] 3 mg PO BEDTIME PRN 01/19/17 [History] Past Medical History HEENT History: Reports: Other (See Below) Other HEENT History: wears glasses Cardiovascular History: Reports: Hypertension Genitourinary History: Reports: Other (See Below) Other Genitourinary History: Kidney failure in 2016 due to overwork per MD Endocrine/Metabolic History: Reports: Diabetes, Type II Other Endocrine/Metabolic History: pre-diabetic. Immunologic History: Reports: HIV - Infectious Disease History Infectious Disease History: Reports: HIV-Human Immunodeficiency Virus, MRSA, Other (See Below) Other Infectious Disease History: Strep throat in 2015; MRSA positive 2016. HIV positive diagnosed in November or October of this year. Currently starting antiviral therapy in November of this year. Is followed by Dr. Haskins infectious disease expert in [place]. - Past Surgical History HEENT Surgical History: Reports: None Endocrine Surgical History: Reports: None Social & Family History - Family History Family Medical History: Noncontributory - Tobacco Use Smoking Status *Q: Never Smoker Second Hand Smoke Exposure: No - Caffeine Use Caffeine Use: Reports: Coffee - Recreational Drug Use Recreational Drug Use: No - Living Situation & Occupation Living situation: Reports: Single Occupation: Employed (Works as a schoolteacher.) ED ROS GENERAL - Review of Systems Review Of Systems: See Below Constitutional: Reports: Fever, Chills, Malaise, Weakness, Fatigue, Diaphoresis , Decreased Appetite, Weight Loss Respiratory: Reports: Cough, Sputum. Denies: Hemoptysis (Occasional sputum production without blood.) Cardiovascular: Reports: Blood Pressure Problem, Lightheadedness, Palpitations ( Since he became ill is aware of his heart going faster than normal). Denies: Chest Pain, Claudication, Dyspnea on Exertion, Edema, Orthopnea (Chronic hypertension) Endocrine: Reports: Fatigue GI/Abdominal: Reports: Abdominal Pain (Right jose-abdominal pain more in the anterior midaxillary line.), Anorexia, Decreased Appetite, Nausea, Vomiting. Denies: Constipation, Diarrhea, Distension, Flatus, Hematemesis, Hematochezia : Reports: No Symptoms Musculoskeletal: Reports: No Symptoms Skin: Reports: No Symptoms Neurological: Reports: Dizziness (With standing up.) Psychiatric: Reports: No Symptoms Hematologic/Lymphatic: Reports: No Symptoms Immunologic: Reports: No Symptoms ED EXAM, GI/ABD - Physical Exam Exam: See Below Exam Limited By: Other (Mild language barrier) General Appearance: Alert ( but he does speak fairly good Sammarinese.), WD/WN, Moderate Distress (Appears ill. He is slightly warm to palpation.) Eyes: Bilateral: Normal Appearance (No jaundice.), Pale Conjunctiva (moderate) Ears: Normal TMs Throat/Mouth: Other (Lips are dry and chapped. Tongue is moist.) Head: Atraumatic, Normocephalic Neck: Normal Inspection, Supple, Non-Tender, Full Range of Motion. No: Lymphadenopathy (L), Lymphadenopathy (R) Respiratory/Chest: No Respiratory Distress, Lungs Clear, Normal Breath Sounds, No Accessory Muscle Use Cardiovascular: Normal Peripheral Pulses, Regular Rate, Rhythm, No Edema, No Gallop, No Murmur GI/Abdominal Exam: Normal Bowel Sounds, Soft, Non-Tender, No Organomegaly, No Distention, No Abnormal Bruit, No Mass, Pelvis Stable, Hepatomegaly (Liver edge is palpable 1.5 cm below the costal margin appears to be nontender. No positive Ivory's sign.) Back Exam: Normal Inspection, Full Range of Motion. No: CVA Tenderness (L), CVA Tenderness (R) Extremities: Normal Inspection, Normal Range of Motion, Non-Tender, No Pedal Edema, Normal Capillary Refill Neurological: Alert, Oriented, CN II-XII Intact, Normal Cognition, Normal Gait Psychiatric: Normal Affect, Normal Mood Skin Exam: Warm, Dry, Intact, Normal Color, No Rash EKG INTERPRETATION EKG Date: 01/19/17 Time: 15:25 Rhythm: Other Rate (Beats/Min): 105 Hurley: Normal P-Wave: Present QRS: Other (Decreased voltage in the limb leads.) ST-T: Other (Early repolarization pattern in the precordial leads.) QT: Normal Course - Vital Signs Last Recorded V/S: Last Vital Signs Temp 37.3 C 01/19/17 11:13 Pulse 117 H 01/19/17 11:13 Resp 16 01/19/17 11:13 BP 127/88 01/19/17 11:13 Pulse Ox 100 01/19/17 11:13 - Orders/Labs/Meds Orders: Active Orders 24 hr Category Date Time Status EKG Documentation Completion [RC] STAT Care 01/19/17 15:06 Active CMV AB, IGG AND IGM [REF] Stat Lab 01/19/17 13:58 Received CULTURE BLOOD [BC] Stat Lab 01/19/17 11:58 Received CULTURE BLOOD [BC] Stat Lab 01/19/17 13:10 Received LACTIC ACID [CHEM] Stat Lab 01/19/17 16:08 Received MISC TEST Stat Lab 01/19/17 13:58 Received URINALYSIS W/MICROSCOPIC [UA W/MICROSCOPIC] [URIN] Stat Lab 01/19/17 11:37 Uncollected Dextrose 5%-0.9% NaCl [Dextrose 5%-Normal Saline] 1,000 Med 01/19/17 11:45 Active ml IV ASDIRECTED Dextrose 5%-0.9% NaCl [Dextrose 5%-Normal Saline] 1,000 Med 01/19/17 14:30 Active ml IV ASDIRECTED Blood Culture x2 Reflex Set [OM.PC] Stat Oth 01/19/17 11:37 Ordered Medication Orders Dextrose/Sodium Chloride (Dextrose 5%-Normal Saline) 1,000 mls @ 999 mls/hr IV ASDIRECTED KATELYN Last Admin: 01/19/17 12:21 Dose: 999 mls/hr Dextrose/Sodium Chloride (Dextrose 5%-Normal Saline) 1,000 mls @ 500 mls/hr IV ASDIRECTED KATELYN Last Admin: 01/19/17 14:39 Dose: 500 mls/hr Labs: Laboratory Tests 01/19/17 01/19/17 01/19/17 Range/Units 12:20 13:10 13:10 WBC 6.55 (4.23-9.07) K/mm3 RBC 2.46 L (4.63-6.08) M/mm3 Hgb 7.0 L* (13.7-17.5) gm/L Hct 21.1 L (40.1-51.0) % MCV 85.8 (79.0-92.2) fl MCH 28.5 (25.7-32.2) pg MCHC 33.2 (32.2-35.5) g/dl RDW Std Deviation 57.7 H (35.1-43.9) fL Plt Count 106 L (163-337) K/mm3 MPV 11.3 (9.4-12.3) fl Neutrophils % (Manual) 88 H (40-60) % Band Neutrophils % 2 (0-10) % Lymphocytes % (Manual) 8 L (20-40) % Atypical Lymphs % 0 % Immat Monocytes % (Man) 0 Monocytes % (Manual) 1 L (2-10) % Eosinophils % (Manual) 1 (0.8-7.0) % Basophils % (Manual) 0 L (0.2-1.2) Metamyelocytes % 0 Myelocytes % 0 Promyelocytes % 0 Blast Cells % 0 Plasma Cell % (Manual) 0 Nucleated RBCs 0.0 % Platelet Estimate Decreased Anisocytosis 1+ slight Rouleaux 1+ slight RBC Morph Comment Not Reportable PT 9.9 (8.0-13.0) SECONDS INR 0.91 Sodium 129 L (136-145) mEq/L Potassium 4.2 (3.5-5.1) mEq/L Chloride 96 L (98-107) mEq/L Carbon Dioxide 20 L (21-32) mEq/L Anion Gap 17.2 H (5-15) BUN 53 H (7-18) mg/dL Creatinine 3.2 H (0.7-1.3) mg/dL Est Cr Clr Drug Dosing TNP Estimated GFR (MDRD) 25 (>60) mL/min BUN/Creatinine Ratio 16.6 (14-18) Glucose 115 H (74-106) mg/dL Calcium 8.9 (8.5-10.1) mg/dL Total Bilirubin 0.8 (0.2-1.0) mg/dL AST 25 (15-37) U/L ALT 28 (16-63) U/L Alkaline Phosphatase 86 (46-116) U/L C-Reactive Protein 37.3 H* (<1.0) mg/dL Total Protein 8.6 H (6.4-8.2) g/dl Albumin 2.0 L (3.4-5.0) g/dl Globulin 6.6 gm/dL Albumin/Globulin Ratio 0.3 L (1-2) Mycoplasma pneumon IgM (NEGATIVE) 01/19/17 Range/Units 13:58 WBC (4.23-9.07) K/mm3 RBC (4.63-6.08) M/mm3 Hgb (13.7-17.5) gm/L Hct (40.1-51.0) % MCV (79.0-92.2) fl MCH (25.7-32.2) pg MCHC (32.2-35.5) g/dl RDW Std Deviation (35.1-43.9) fL Plt Count (163-337) K/mm3 MPV (9.4-12.3) fl Neutrophils % (Manual) (40-60) % Band Neutrophils % (0-10) % Lymphocytes % (Manual) (20-40) % Atypical Lymphs % % Immat Monocytes % (Man) Monocytes % (Manual) (2-10) % Eosinophils % (Manual) (0.8-7.0) % Basophils % (Manual) (0.2-1.2) Metamyelocytes % Myelocytes % Promyelocytes % Blast Cells % Plasma Cell % (Manual) Nucleated RBCs % Platelet Estimate Anisocytosis Rouleaux RBC Morph Comment PT (8.0-13.0) SECONDS INR Sodium (136-145) mEq/L Potassium (3.5-5.1) mEq/L Chloride (98-107) mEq/L Carbon Dioxide (21-32) mEq/L Anion Gap (5-15) BUN (7-18) mg/dL Creatinine (0.7-1.3) mg/dL Est Cr Clr Drug Dosing Estimated GFR (MDRD) (>60) mL/min BUN/Creatinine Ratio (14-18) Glucose (74-106) mg/dL Calcium (8.5-10.1) mg/dL Total Bilirubin (0.2-1.0) mg/dL AST (15-37) U/L ALT (16-63) U/L Alkaline Phosphatase (46-116) U/L C-Reactive Protein (<1.0) mg/dL Total Protein (6.4-8.2) g/dl Albumin (3.4-5.0) g/dl Globulin gm/dL Albumin/Globulin Ratio (1-2) Mycoplasma pneumon IgM Negative (NEGATIVE) Meds: Medications Generic Name Dose Route Start Last Admin Trade Name Freq PRN Reason Stop Dose Admin Dextrose/Sodium Chloride 1,000 mls @ 999 mls/hr 01/19/17 11:45 01/19/17 12:21 Dextrose 5%-Normal Saline IV 999 mls/hr ASDIRECTED KATELYN Administration Dextrose/Sodium Chloride 1,000 mls @ 500 mls/hr 01/19/17 14:30 01/19/17 14:39 Dextrose 5%-Normal Saline IV 500 mls/hr ASDIRECTED KATELYN Administration Discontinued Medications Generic Name Dose Route Start Last Admin Trade Name Stefanoq PRN Reason Stop Dose Admin Hydromorphone HCl 0.5 mg 01/19/17 11:35 01/19/17 13:14 Dilaudid IVPUSH 01/19/17 11:36 0.5 mg ONETIME ONE Administration Hydromorphone HCl 0.5 mg 01/19/17 14:25 01/19/17 14:43 Dilaudid IVPUSH 01/19/17 14:26 0.5 mg ONETIME ONE Administration Cefuroxime Sodium 750 mg/ 50 mls @ 100 mls/hr 01/19/17 13:55 01/19/17 14:50 Sodium Chloride IV 01/19/17 14:24 100 mls/hr ONETIME ONE Administration Azithromycin 500 mg/ Sodium 250 mls @ 250 mls/hr 01/19/17 14:53 01/19/17 15: 57 Chloride IV 01/19/17 15:52 250 mls/hr ONETIME ONE Administration Ibuprofen 600 mg 01/19/17 11:40 01/19/17 12:03 Motrin PO 01/19/17 11:41 600 mg ONETIME ONE Administration Ondansetron HCl 4 mg 01/19/17 11:35 01/19/17 13:12 Zofran IVPUSH 01/19/17 11:36 4 mg ONETIME ONE Administration - Radiology Interpretation Free Text/Narrative:: 56-year-old male who is known to be HIV positive and currently on antiretroviral therapy presents to the ED with diffuse right jose-abdominal pain quite lateral eye almost in the midaxillary line. Pain radiates from there up to his diaphragm and right shoulder suggesting irritation of the right hemidiaphragm. Associated fever chills nausea and vomiting. Has not kept down any solid food or fluids much for the last 2 days. Very weak and dizzy. Emesis is been bilious. Denies diarrhea. Mid to a cough that is sometimes productive but no color to the sputum. Denies any hemoptysis. He has been taking his medications and he believes most of them are staying down. Patient was last seen by Dr. Haskins January 06 and . Apparently no changes to his antiretrovirals were made. Vital signs reveal him to be tachycardic at rest at 117. Minute. He has mild tachypnea as well. His O2 sats are 100% on room air. Septic workup will be commenced due to his immunocompromise state. Plan IV D5 normal saline at open. Given Zofran 4 mg IV with Dilaudid 0.5 mg IV for pain relief. Chest x-ray one abdominal film routine labs blood cultures 2 urinalysis all to be done. - Re-Assessments/Exams Free Text/Narrative Re-Assessment/Exam: 01/19/17 13:23 There was a significant delay in getting his investigations completed as he was difficult to obtain IV access. Labs are therefore pending. KUB is essentially normal. There are few nonspecific dilated loops of small bowel without any degree of obstruction. Chest x-ray two-view shows an infiltrate in the right lower lung and middle lobe of the lung adjacent to the medial right heart border compatible with pneumonia. He does have mild to moderate cardiomegaly as well. Due to his HIV infection he is prone to development of atypical infections and I will therefore consult Dr. Haskisn who looks after him in regards to his preference for antibiotic therapy. 01/19/17 13:26 Lab called over with critical value. His hemoglobin is 7.0 .His white count was 6.55 with a left shift of 75% neutrophils. They're doing the manual differential at this time. Platelets are low normal at 106,000. Chemistry is pending. 01/19/17 13:45 Dr. Haskins has returned my call and suggest that we send away blood for cytomegalovirus PCR. 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 He suggest that we repeat lab work for Mycobacterium avium complex in his blood as well as the stool. Also of course avoiding very good sputum specimen to send this for culture as well. This is presuming that the patient is able to stay here. I have yet to see us chemistry if his renal function is still poor he will have to be transferred back to [place] for definitive management. 01/19/17 13:56 I will start him on cefuroxime 750 mg IV at this time. 01/19/17 14:25 chemistry is now back showing a hyponatremia with a sodium of 129. Potassium is stable at 4.2 chloride is 96 bicarbonate is 20. Anion gap is elevated at 17.2 be when his 53 creatinine is 3.2 glucose 1:15 CRP markedly elevated at 37.3. Therefore due to his compromised renal state and multiple complex potential infections in HIV patient he will be sent to [facility] in [facility] closer to infectious disease management. He is still having a fair amount of right jose-abdominal pain I will repeat his Dilaudid 0.5 mg IV. There is likely to be a delay in transport to [place] as [facility]'s very full at this time. He needs a negative pressure room which may be difficult to obtain at this time. Clinical coordinator will call back when a formal bed has been arranged. 01/19/17 15:43 patient reports that his abdominal pain is improved after the last dose of Dilaudid 0.5 mg IV. However his blood pressures dropped staying in the upper 80s. I'm therefore going to increase his IV to open. It had been LR running at 500 mils an hour. 01/19/17 15:55 current blood pressure is 87/66 with a heart rate of 1 10/m. O2 sats 98% on room air. ECG was done since was missed on the first orders reveals sinus rhythm at 10 5/m with a decreased voltage in limb leads and early repolarization pattern in the precordial leads but no other signs of ischemia. 01/19/17 16:31 blood pressure is currently 90/60 heart rate 106 sats of 98%. Of note the patient has not yet voided even after 2 L of crystalloid. Starting his third liter of crystalloid which will be Ringer's lactate at open. Departure - Departure Time of Disposition: 16:31 Disposition: DC/Tfer to Acute Hospital 02 Condition: Serious Clinical Impression: Chronic renal insufficiency, stage IV (severe), Hyponatremia, Acute febrile illness, Human immunodeficiency virus (HIV) positive Pneumonia Qualifiers: Pneumonia type: due to unspecified organism Laterality: right Lung location: lower lobe of lung Qualified Code(s): J18.1 - Lobar pneumonia, unspecified organism Anemia Qualifiers: Anemia type: unspecified type Qualified Code(s): D64.9 - Anemia, unspecified Abdominal pain Qualifiers: Abdominal location: right upper quadrant Qualified Code(s): R10.11 - Right upper quadrant pain - Discharge Information Referrals: Mario Isaacs Jr, MD [Primary Care Provider] - Forms: ED Department Discharge Additional Instructions: Patient transferred to [facility] where he has received previous care. Patient is HIV positive and so far his renal function has not been good enough to tolerate antiretrovirals.HIV positivity in November of this year. Currently he has a pneumonia involving the right middle lobe and right lower lobe of his lung on the right side with an acute date fever. Associated nausea and vomiting with no nutrition and dehydration. Associated renal insufficiency with GFR of only 25. Known to be a Mycobacterium avium complex positive in the past. Moderate anemia requiring red blood cell transfusion. Dr. Haskins from the infectious disease department is involved in his care. - My Orders Last 24 Hours: My Active Orders 01/19/17 11:37 URINALYSIS W/MICROSCOPIC [UA W/MICROSCOPIC] [URIN] Stat Blood Culture x2 Reflex Set [OM.PC] Stat 01/19/17 11:45 Dextrose 5%-0.9% NaCl [Dextrose 5%-Normal Saline] 1,000 ml IV ASDIRECTED 01/19/17 11:58 CULTURE BLOOD [BC] Stat 01/19/17 13:10 CULTURE BLOOD [BC] Stat 01/19/17 13:58 CMV AB, IGG AND IGM [REF] Stat MISC TEST Stat 01/19/17 14:30 Dextrose 5%-0.9% NaCl [Dextrose 5%-Normal Saline] 1,000 ml IV ASDIRECTED 01/19/17 15:06 EKG Documentation Completion [RC] STAT 01/19/17 16:08 LACTIC ACID [CHEM] Stat - Assessment/Plan Last 24 Hours: My Active Orders 01/19/17 11:37 URINALYSIS W/MICROSCOPIC [UA W/MICROSCOPIC] [URIN] Stat Blood Culture x2 Reflex Set [OM.PC] Stat 01/19/17 11:45 Dextrose 5%-0.9% NaCl [Dextrose 5%-Normal Saline] 1,000 ml IV ASDIRECTED 01/19/17 11:58 CULTURE BLOOD [BC] Stat 01/19/17 13:10 CULTURE BLOOD [BC] Stat 01/19/17 13:58 CMV AB, IGG AND IGM [REF] Stat MISC TEST Stat 01/19/17 14:30 Dextrose 5%-0.9% NaCl [Dextrose 5%-Normal Saline] 1,000 ml IV ASDIRECTED 01/19/17 15:06 EKG Documentation Completion [RC] STAT 01/19/17 16:08 LACTIC ACID [CHEM] Stat
[2017-01-19] MEDS ORDERED: Ondansetron 4 MG/2 ML SDV IVPUSH ONE (11:35)
[2017-01-19] MEDS ORDERED: HYDROmorphone 0.5 MG/0.5 ML Syringe IVPUSH ONE ×2 (11:35→14:25)
[2017-01-19] MEDS ORDERED: Ibuprofen 600 MG Tab PO ONE (11:40)
[2017-01-19] MEDS ORDERED: Dextrose 5%-0.9% NaCl 1,000 ML IV SCH ×2 (11:45→14:30)
--- NOTE | 2017-01-19 14:08 | CR ---
Chest: Two views of the chest were obtained. Comparison: Previous chest x-ray of 12/13/16. Increased density is identified along the right margin. Lungs otherwise are clear. Heart is enlarged. Mild tortuosity of the thoracic aorta is seen. Bony structures are within normal limits for the patient's age. Impression: 1. Increased density along the right heart margin raising the possibility of pneumonia. Please correlate if patient has symptoms of such. 2. Cardiomegaly and other incidental findings. Cardiomegaly is an interval change from prior exam. Diagnostic code #3
--- NOTE | 2017-01-19 14:08 | CR ---
Abdomen: Supine view of the abdomen was obtained. Comparison: No prior study. Slightly prominent loops of small bowel gas are noted. Bowel gas pattern is otherwise unremarkable. No abnormal calcifications or soft tissue abnormality is seen. Bony structures are unremarkable. Impression: 1. Several slightly prominent loops of small bowel gas. This is likely incidental. 2. Study is otherwise unremarkable. Diagnostic code #2
[2017-01-19] MEDS ORDERED: Azithromycin 500 MG in Sodium Chloride 0.9% 250 ML IV ONE (14:53)
[2017-01-19] MEDS ORDERED: Lactated Ringers 1,000 ML IV SCH (16:45)
[2017-01-19 17:43] VITALS: BP 92/54
== END 2017-01-19 16:45 ==
LOC: JD.ED 10:59
DX: I12.9 Hypertensive chronic kidney disease with stage 1 through stage 4 chronic kidney disease, or unspecified chronic kidney disease (principal); E11.22 Type 2 diabetes mellitus with diabetic chronic kidney disease; N18.4 Chronic kidney disease, stage 4 (severe); J18.9 Pneumonia, unspecified organism; B20 Human immunodeficiency virus [HIV] disease; E87.1 Hypo-osmolality and hyponatremia; R50.9 Fever, unspecified; Z79.899 Other long term (current) drug therapy
CPT/HCPCS: 36415; 71020; 74000; 80053; 83605; 85025; 85610; 86140; 86644; 86645; 86738; 87040; 93005; 96361; 96365; 96367; 96375; 96376; 99285; A9270; J0456; J0697; J1170; J2405; J7042; J7050; 87015; 87077; 87116; 87184

== ENCOUNTER 2017-04-03 18:23 | Emergency (ER) | payer BC, MEDICAID ==
[2017-04-03 19:00] VITALS: BP 147/95
--- NOTE | 2017-04-03 19:27 | EDM.PDOC ---
ED HPI GENERAL MEDICAL PROBLEM - General Chief Complaint: Gastrointestinal Problem Stated Complaint: NAUSEA/BLOATING Time Seen by Provider: 04/03/17 19:02 Source of Information: Reports: Patient History Limitations: Reports: No Limitations - History of Present Illness INITIAL COMMENTS - FREE TEXT/NARRATIVE: This is a 56-year-old male. He comes tonight because he's had on and off abdominal pain for the last couple of weeks and apparently they got worse this evening and he feels like his stomach is bloating. He doesn't eat or drink much. He is HIV positive and states that he takes his medications faithfully. He also has a history of electrolyte disturbance anemia and chronic renal failure stage IV. He is not on dialysis. When he comes he says that his stomach is bloated and yet it appears to be fairly flat when he is lying on the bed. He does not appear to be in distress at this time. In just observation he does appear to be extremely dry and his skin is very withered looking. He denies any sore throat he denies any cough. He states he urinates any defecates without any difficulty. He doesn't remember when he last urinated however. mid abdomen Pain Score (Numeric/FACES): 9 - Related Data Allergies Allergy/AdvReac Type Severity Reaction Status Date / Time No Known Drug Allergies Allergy Other Verified 04/03/17 19:00 Home Meds: Home Meds Abacavir/Dolutegravir/Lamivudi [Triumeq Tablet] 1 tab PO DAILY 01/19/17 [History ] Amitriptyline [Elavil] 10 mg PO BEDTIME 01/19/17 [History] Ferrous Sulfate 325 mg PO DAILY 01/19/17 [History] Past Medical History HEENT History: Reports: Other (See Below) Other HEENT History: wears glasses Cardiovascular History: Reports: Hypertension Genitourinary History: Reports: Other (See Below) Other Genitourinary History: Kidney failure in 2016 due to overwork per MD Psychiatric History: Reports: Anxiety, Depression Endocrine/Metabolic History: Reports: Diabetes, Type II Other Endocrine/Metabolic History: pre-diabetic. Immunologic History: Reports: HIV, Other (See Below) Other Immunologic History: Hx MRSA - Infectious Disease History Infectious Disease History: Reports: HIV-Human Immunodeficiency Virus, MRSA, Other (See Below) Other Infectious Disease History: Strep throat in 2015; MRSA positive 2016. HIV positive diagnosed in November or October of this year. Currently starting antiviral therapy in November of this year. Is followed by Dr. Haskins infectious disease expert in [place]. - Past Surgical History HEENT Surgical History: Reports: None Endocrine Surgical History: Reports: None Social & Family History - Family History Family Medical History: Noncontributory - Tobacco Use Smoking Status *Q: Never Smoker Second Hand Smoke Exposure: No - Caffeine Use Caffeine Use: Reports: Coffee - Recreational Drug Use Recreational Drug Use: No - Living Situation & Occupation Living situation: Reports: Single Occupation: Employed (Works as a schoolteacher.) ED ROS GENERAL - Review of Systems Review Of Systems: See Below Constitutional: Reports: Weakness, Fatigue. Denies: Fever, Chills HEENT: Denies: Rhinitis, Sinus Problem, Throat Pain Respiratory: Denies: Shortness of Breath, Wheezing, Cough Cardiovascular: Denies: Chest Pain Endocrine: Reports: No Symptoms GI/Abdominal: Reports: Abdominal Pain, Distension. Denies: Black Stool, Bloody Stool, Diarrhea, Nausea, Vomiting : Reports: No Symptoms Musculoskeletal: Reports: No Symptoms Skin: Reports: No Symptoms Neurological: Reports: No Symptoms Psychiatric: Reports: No Symptoms Hematologic/Lymphatic: Reports: Anemia ED EXAM, GI/ABD - Physical Exam Exam: See Below Exam Limited By: No Limitations General Appearance: Alert, No Apparent Distress, Thin Ears: Normal External Exam, Normal Canal, Normal TMs Nose: Normal Inspection Throat/Mouth: Normal Lips, Normal Voice, No Airway Compromise, Other (Patient is very dry with tacky mucous membranes) Head: Normocephalic Neck: Supple Respiratory/Chest: No Respiratory Distress, Lungs Clear, Normal Breath Sounds Cardiovascular: Regular Rate, Rhythm, No Murmur GI/Abdominal Exam: Soft, Other (He has generalized tenderness of the mid abdomen however palpation of that area does not seem to make him hurt, bowel sounds are decreased but they are faintly present, he has dough skin). No: Distended, Guarding, Rigid, Rebound Back Exam: Normal Inspection Extremities: Normal Inspection, Normal Range of Motion, No Pedal Edema, Other ( Very poor skin turgor) Neurological: Alert, Oriented Psychiatric: Normal Affect, Normal Mood Skin Exam: Warm, Dry Course - Vital Signs Last Recorded V/S: Last Vital Signs Temp 99.2 F 04/03/17 18:50 Pulse 90 04/03/17 18:50 Resp 22 H 04/03/17 18:50 BP 147/95 H 04/03/17 18:50 Pulse Ox 99 04/03/17 18:50 - Orders/Labs/Meds Orders: Active Orders 24 hr Category Date Time Status Abdomen 2V AP Flat Upright [CR] Stat Exams 04/03/17 19:22 Taken Abdomen Pelvis wo Cont [CT] Stat Exams 04/03/17 20:29 Taken Chest 2V [CR] Stat Exams 04/03/17 19:22 Taken Sodium Chloride 0.9% [Normal Saline] 1,000 ml Med 04/03/17 19:30 Active IV ASDIRECTED Sodium Chloride 0.9% [Normal Saline] 1,000 ml Med 04/03/17 21:45 Active IV ASDIRECTED Medication Orders Sodium Chloride (Normal Saline) 1,000 mls @ 1,000 mls/hr IV ASDIRECTED KATELYN Last Admin: 04/03/17 19:38 Dose: 1,000 mls/hr Sodium Chloride (Normal Saline) 1,000 mls @ 999 mls/hr IV ASDIRECTED KATELYN Last Admin: 04/03/17 21:51 Dose: 500 mls/hr Labs: Laboratory Tests 04/03/17 04/03/17 04/03/17 Range/Units 19:30 20:42 23:20 WBC 3.04 L (4.23-9.07) K/mm3 RBC 2.68 L (4.63-6.08) M/mm3 Hgb 7.6 L (13.7-17.5) gm/L Hct 22.9 L (40.1-51.0) % MCV 85.4 (79.0-92.2) fl MCH 28.4 (25.7-32.2) pg MCHC 33.2 (32.2-35.5) g/dl RDW Std Deviation 51.8 H (35.1-43.9) fL Plt Count 176 (163-337) K/mm3 MPV 8.9 L (9.4-12.3) fl Neut % (Auto) 56.8 (34.0-67.9) % Lymph % (Auto) 27.3 (21.8-53.1) % [place] % (Auto) 8.6 (5.3-12.2) % Eos % (Auto) 3.0 (0.8-7.0) Baso % (Auto) 1.3 H (0.1-1.2) % Neut # (Auto) 1.73 L (1.78-5.38) K/mm3 Lymph # (Auto) 0.83 L (1.32-3.57) K/mm3 [place] # (Auto) 0.26 L (0.30-0.82) K/mm3 Eos # (Auto) 0.09 (0.04-0.54) K/mm3 Baso # (Auto) 0.04 (0.01-0.08) K/mm3 Manual Slide Review Abnormal smear Sodium 130 L (136-145) mEq/L Potassium 3.5 (3.5-5.1) mEq/L Chloride 99 (98-107) mEq/L Carbon Dioxide 24 (21-32) mEq/L Anion Gap 10.5 (5-15) BUN 13 (7-18) mg/dL Creatinine 1.0 (0.7-1.3) mg/dL Est Cr Clr Drug Dosing 73.90 mL/min Estimated GFR (MDRD) > 60 (>60) mL/min BUN/Creatinine Ratio 13.0 L (14-18) Glucose 98 (74-106) mg/dL Calcium 9.8 (8.5-10.1) mg/dL Total Bilirubin 0.4 (0.2-1.0) mg/dL AST 29 (15-37) U/L ALT 15 L (16-63) U/L Alkaline Phosphatase 100 (46-116) U/L Troponin I < 0.017 (0.00-0.056) ng/mL Total Protein 7.5 (6.4-8.2) g/dl Albumin 1.8 L (3.4-5.0) g/dl Globulin 5.7 gm/dL Albumin/Globulin Ratio 0.3 L (1-2) Urine Color Yellow (Yellow) Urine Appearance Clear (Clear) Urine pH 6.5 (5.0-8.0) Ur Specific [place] > or = 1.030 (1.005-1.030) Urine Protein 2+ H (Negative) Urine Glucose (UA) Negative (Negative) Urine Ketones Negative (Negative) Urine Occult Blood Trace-lysed H (Negative) Urine Nitrite Negative (Negative) Urine Bilirubin Negative (Negative) Urine Urobilinogen 0.2 (0.2-1.0) Ur Leukocyte Esterase Negative (Negative) Urine RBC 5-10 H (0-5) /hpf Urine WBC 0-5 (0-5) /hpf Ur Epithelial Cells 0-5 (0-5) /hpf Urine Bacteria Moderate H (FEW) /hpf Urine Mucus Not seen (FEW) /hpf Meds: Medications Generic Name Dose Route Start Last Admin Trade Name Freq PRN Reason Stop Dose Admin Sodium Chloride 1,000 mls @ 1,000 mls/hr 04/03/17 19:30 04/03/17 19:38 Normal Saline IV 1,000 mls/hr ASDIRECTED KATELYN Administration Sodium Chloride 1,000 mls @ 999 mls/hr 04/03/17 21:45 04/03/17 21:51 Normal Saline IV 500 mls/hr ASDIRECTED KATELYN Administration Discontinued Medications Generic Name Dose Route Start Last Admin Trade Name Freq PRN Reason Stop Dose Admin Diatrizoate Meglum/Diatrizoate Sod 90 ml 04/03/17 21:25 Gastrografin 37% PO 04/03/17 21:26 ONETIME ONE Ondansetron HCl 4 mg 04/03/17 21:22 04/03/17 21:28 Zofran IVPUSH 04/03/17 21:23 4 mg ONETIME ONE Administration - Radiology Interpretation Free Text/Narrative:: Chest x-ray does not show any acute changes I don't really see any blunting of the costophrenic angles. CT scan of his abdomen showed a small pericardial effusion and some small bilateral pleural effusions greater on the left some mild spleen enlargement he also had extensive retroperitoneal and mesenteric lymphadenopathy suggesting lymphoma and he had some mild ascites in the upper abdomen and pelvis. - Re-Assessments/Exams Free Text/Narrative Re-Assessment/Exam: 04/04/17 00:22 I spoke to the patient regarding the CT scan results. I spoke to Dr. Ochoa at [facility] in [place] hematology/oncology Physician operation shift supervisor and since he is okay to go home he is to call their front office associate on Wednesday to make an appointment to be seen regarding the CT scan results. I will push the CT scan results over to [facility] so they can review them. 04/04/17 00:29 Departure - Departure Time of Disposition: 00:25 Disposition: Home, Self-Care 01 Condition: Fair Clinical Impression: Intra-abdominal lymphadenopathy, Dehydration, Anemia, chronic disease, HIV positive Ascites Qualifiers: Ascites type: other type Qualified Code(s): R18.8 - Other ascites Lymphoma Qualifiers: Lymphoma type: unspecified type Lymphoma site: intra-abdominal nodes Qualified Code(s): C85.93 - Non-Hodgkin lymphoma, unspecified, intra-abdominal lymph nodes - Discharge Information Instructions: Dehydration, Adult, [id number] Referrals: PCP,None [Primary Care Provider] - Forms: ED Department Discharge Additional Instructions: Continue to drink lots of fluids, I spoke with the hematology oncology physician at [facility] Dr. Ochoa and she wants her to call the office on Wednesday, the number is [phone], and make an appointment to be seen next week , follow-up with Dr. Gregory this coming week as well for recheck and reevaluation, return to the ER if needed - My Orders Last 24 Hours: My Active Orders 04/03/17 19:22 Abdomen 2V AP Flat Upright [CR] Stat Chest 2V [CR] Stat 04/03/17 19:30 Sodium Chloride 0.9% [Normal Saline] 1,000 ml IV ASDIRECTED 04/03/17 20:29 Abdomen Pelvis wo Cont [CT] Stat 04/03/17 21:45 Sodium Chloride 0.9% [Normal Saline] 1,000 ml IV ASDIRECTED - Assessment/Plan Last 24 Hours: My Active Orders 04/03/17 19:22 Abdomen 2V AP Flat Upright [CR] Stat Chest 2V [CR] Stat 04/03/17 19:30 Sodium Chloride 0.9% [Normal Saline] 1,000 ml IV ASDIRECTED 04/03/17 20:29 Abdomen Pelvis wo Cont [CT] Stat 04/03/17 21:45 Sodium Chloride 0.9% [Normal Saline] 1,000 ml IV ASDIRECTED
[2017-04-03] MEDS ORDERED: Sodium Chloride 0.9% 1,000 ML IV SCH ×2 (19:30→21:45)
[2017-04-03] MEDS ORDERED: Ondansetron 4 MG/2 ML SDV IVPUSH ONE (21:22)
[2017-04-03] MEDS ORDERED: Diatrizoate Meglumine/Diatrizoate Sodium 37% 120 ML Bottle PO ONE (21:25)
--- NOTE | 2017-04-05 06:45 | CR ---
Abdomen: Supine and upright views of the abdomen were obtained. Comparison: Previous abdominal x-ray of 01/19/17 is available. Gas noted within small bowel and colon with fluid being seen within the colon and small bowel. These findings do not appear to be obstructive. Calcifications are seen within the pelvis compatible with phleboliths. No free air is seen. Bony structures are unremarkable. Impression: 1. Findings which are felt to be incidental as described above. Diagnostic code #2
--- NOTE | 2017-04-05 06:45 | CR ---
Chest: Two views of the chest were obtained. Comparison: Prior chest x-ray of 01/19/17. Heart size slightly enlarged. Tortuous thoracic aorta is seen. Lungs are clear. Bony structures are unremarkable for the patient's age. Impression: 1. Slight cardiomegaly. Nothing acute is otherwise seen on two-view chest x-ray. Diagnostic code #2
--- NOTE | 2017-04-05 06:45 | CT ---
CT abdomen and pelvis Technique: Multiple axial sections were obtained from above the dome of the diaphragm inferiorly through the pubic symphysis. Intravenous contrast not utilized. Oral contrast has been given. Comparison: No prior CT abdomen or pelvis exam, previous abdominal x-ray performed earlier on the same day (7:45 PM). Findings: Small left-sided pleural effusion is seen. Trace pleural effusion on the right side is noted. Small to moderate sized pericardial effusion is seen. Mild bibasilar atelectasis is noted. Spleen is enlarged with length of 13.7 cm. Multiple retroperitoneal and mesenteric lymph nodes are seen. These are abnormal in number and size. Noncontrast appearance of the liver shows no discrete abnormality. Adrenal glands show no nodule. Kidneys show no hydronephrosis. There is a low density lesion being seen within the left kidney having Hounsfield unit measurements of a cyst and measures 1.3 cm in size. Aorta shows no aneurysmal dilatation. Small amount of fluid is seen within the pelvis. No pelvic adenopathy or mass is seen. Appendix felt to be visualized and appears normal. Bone window settings were reviewed which appear within normal limits for the patient's age. Impression: 1. Multiple retroperitoneal and mesenteric lymph nodes which are abnormal in number and size. Findings suspicious for lymphoma. 2. Mild splenomegaly. 3. Small left-sided pleural effusion as well as pericardial effusion. Small amount of increased fluid is seen within the pelvis. 4. Other findings which are felt to be incidental as described above. Diagnostic code #9 I agree with preliminary report issued by [employer] ([facility] preliminary report dictated on 04/03/17, 11:40 PM Central Time)
== END 2017-04-04 00:43 | disposition home or self-care (01) ==
LOC: JD.ED 18:23
DX: E86.0 Dehydration (principal); D64.9 Anemia, unspecified; R18.8 Other ascites; R59.0 Localized enlarged lymph nodes; C85.93 Non-Hodgkin lymphoma, unspecified, intra-abdominal lymph nodes; E11.9 Type 2 diabetes mellitus without complications; B20 Human immunodeficiency virus [HIV] disease; Z79.899 Other long term (current) drug therapy
CPT/HCPCS: 36415; 71020; 74020; 74176; 80053; 81001; 84484; 85025; 96361; 96374; 99285; J2405; J7040; Q9963; 99284

== ENCOUNTER 2017-08-12 13:29 | Emergency (ER) | payer BC, MEDICAID ==
[2017-08-12 13:43] VITALS: BP 135/90
[2017-08-12] MEDS ORDERED: Sodium Chloride 0.9% 1,000 ML IV SCH (14:15)
--- NOTE | 2017-08-12 14:21 | EDM.PDOC ---
ED HPI GENERAL MEDICAL PROBLEM - General Chief Complaint: Abdominal Pain Stated Complaint: ABDOMINAL PAIN Time Seen by Provider: 08/12/17 13:44 Source of Information: Reports: Patient, Family, RN Notes Reviewed - History of Present Illness INITIAL COMMENTS - FREE TEXT/NARRATIVE: 56-year-old male comes in with weakness, lower abdominal discomfort. He is HIV positive with history of chronic illness associated with that. He is under the care of Dr Haskins, Infectious Disease [facility] and other specialists and Dr Ferny geiger. He did receive a liter of IV fluid at the clinic yesterday. He continues to feel weak dizzy today and continued intermittent lower abdominal discomfort. He denies being constipated. He apparently does have some chronic diarrhea. He also does have occasional nausea, vomiting. Appetite is been poor, fluid intake somewhat poor as well. No chest pain cough or difficulty breathing. Bilateral Lower Abdomen Pain Score (Numeric/FACES): 6 - Related Data Allergies Allergy/AdvReac Type Severity Reaction Status Date / Time No Known Drug Allergies Allergy Other Verified 08/12/17 13:42 Home Meds: Home Meds Abacavir/Dolutegravir/Lamivudi [Triumeq Tablet] 1 tab PO DAILY 01/19/17 [History ] Carvedilol 6.25 mg PO BID 08/12/17 [History] Ciprofloxacin [IJD: Ciprofloxacin HCl] 500 mg PO BID 08/12/17 [History] Clarithromycin 500 mg PO BID 08/12/17 [History] Ethambutol 400 mg PO BID 08/12/17 [History] Hydrocortisone 5 mg PO DAILY 08/12/17 [History] Lisinopril 5 mg PO DAILY 08/12/17 [History] Mirtazapine 15 mg PO BEDTIME 08/12/17 [History] Potassium Chloride 20 meq PO DAILY #14 tablet.er 08/12/17 [Rx] Raltegravir [Isentress] 400 mg PO BID 08/12/17 [History] Past Medical History HEENT History: Reports: Other (See Below) Other HEENT History: wears glasses Cardiovascular History: Reports: Hypertension Genitourinary History: Reports: Other (See Below) Other Genitourinary History: Kidney failure in 2016 due to overwork per MD Psychiatric History: Reports: Anxiety, Depression Endocrine/Metabolic History: Reports: Diabetes, Type II Other Endocrine/Metabolic History: pre-diabetic. Immunologic History: Reports: HIV, Other (See Below) Other Immunologic History: Hx MRSA - Infectious Disease History Infectious Disease History: Reports: HIV-Human Immunodeficiency Virus, MRSA, Other (See Below) Other Infectious Disease History: Strep throat in 2016; MRSA positive 2016. HIV positive diagnosed in November or October of this year. Currently starting antiviral therapy in November of this year. Is followed by Dr. Haskins infectious disease expert in [place]. - Past Surgical History HEENT Surgical History: Reports: None Endocrine Surgical History: Reports: None Social & Family History - Family History Family Medical History: Noncontributory - Tobacco Use Smoking Status *Q: Never Smoker Second Hand Smoke Exposure: No - Caffeine Use Caffeine Use: Reports: Coffee - Recreational Drug Use Recreational Drug Use: No - Living Situation & Occupation Living situation: Reports: Single Occupation: Employed (Works as a schoolteacher.) ED ROS GENERAL - Review of Systems Review Of Systems: See Below Constitutional: Denies: Fever (No obvious fever), Chills HEENT: Reports: Other. Denies: Sinus Problem, Throat Pain Respiratory: Reports: Cough. Denies: Shortness of Breath (Mouth feels dry) Cardiovascular: Denies: Chest Pain (Very occasional) GI/Abdominal: Reports: Abdominal Pain (Intermittent lower abdominal cramps), Diarrhea (Occasional mild), Nausea (Occasional), Vomiting Musculoskeletal: Reports: Other (Generalized weakness) Neurological: Reports: Dizziness, Difficulty Walking (Generalized needs assistance), Weakness ED EXAM, GI/ABD - Physical Exam Exam: See Below General Appearance: Alert, No Apparent Distress Eyes: Bilateral: Normal Appearance Throat/Mouth: Other Head: Atraumatic (Oral mucosa is dry). No: Facial Swelling Neck: Supple, Full Range of Motion Respiratory/Chest: No Respiratory Distress, Lungs Clear, Normal Breath Sounds Cardiovascular: Regular Rate, Rhythm GI/Abdominal Exam: Soft, Tender (Very minimal tenderness lower mid abdomen), Other (No surgical scars). No: Guarding, Rebound Back Exam: No: CVA Tenderness (L), CVA Tenderness (R) Extremities: Normal Inspection. No: Pedal Edema, Leg Pain Neurological: Alert, No Motor/Sensory Deficits Skin Exam: Warm, Dry Course - Vital Signs Last Recorded V/S: Last Vital Signs Temp 98.9 F 08/12/17 13:38 Pulse 71 08/12/17 13:38 Resp 19 08/12/17 13:38 BP 135/90 08/12/17 13:38 Pulse Ox 100 08/12/17 13:38 - Orders/Labs/Meds Orders: Active Orders 24 hr Category Date Time Status Sodium Chloride 0.9% [Normal Saline] 1,000 ml Med 08/12/17 14:15 Active IV ONETIME Medication Orders Sodium Chloride (Normal Saline) 1,000 mls @ 999 mls/hr IV ONETIME KATELYN Last Admin: 08/12/17 14:47 Dose: 999 mls/hr Labs: Laboratory Tests 08/12/17 08/12/17 08/12/17 Range/Units 14:30 14:30 14:30 WBC 1.50 L* (4.23-9.07) K/mm3 RBC 2.76 L (4.63-6.08) M/mm3 Hgb 7.8 L (13.7-17.5) gm/L Hct 22.5 L (40.1-51.0) % MCV 81.5 (79.0-92.2) fl MCH 28.3 (25.7-32.2) pg MCHC 34.7 (32.2-35.5) g/dl RDW Std Deviation 42.3 (35.1-43.9) fL Plt Count 188 (163-337) K/mm3 MPV 9.0 L (9.4-12.3) fl Neutrophils % (Manual) 62 H (40-60) % Band Neutrophils % 0 (0-10) % Lymphocytes % (Manual) 22 (20-40) % Atypical Lymphs % 0 % Monocytes % (Manual) 14 H (2-10) % Eosinophils % (Manual) 0 L (0.8-7.0) % Basophils % (Manual) 2 H (0.2-1.2) Differential Comment See note Platelet Estimate Adequate Plt Morphology Comment Normal Microcytosis 1+ slight RBC Morph Comment Not Reportable Sodium 133 L (136-145) mEq/L Potassium 2.6 L (3.5-5.1) mEq/L Chloride 100 (98-107) mEq/L Carbon Dioxide 28 (21-32) mEq/L Anion Gap 7.6 (5-15) BUN 10 (7-18) mg/dL Creatinine 1.1 (0.7-1.3) mg/dL Est Cr Clr Drug Dosing 63.29 mL/min Estimated GFR (MDRD) > 60 (>60) mL/min BUN/Creatinine Ratio 9.1 L (14-18) Glucose 110 H (74-106) mg/dL Lactic Acid 0.8 (0.4-2.0) mmol/L Calcium 8.8 (8.5-10.1) mg/dL Total Bilirubin 0.4 (0.2-1.0) mg/dL AST 21 (15-37) U/L ALT 13 L (16-63) U/L Alkaline Phosphatase 106 (46-116) U/L Total Protein 6.8 (6.4-8.2) g/dl Albumin 1.9 L (3.4-5.0) g/dl Globulin 4.9 gm/dL Albumin/Globulin Ratio 0.4 L (1-2) Lipase 222 (73-393) U/L Meds: Medications Generic Name Dose Route Start Last Admin Trade Name Freq PRN Reason Stop Dose Admin Sodium Chloride 1,000 mls @ 999 mls/hr 08/12/17 14:15 08/12/17 14:47 Normal Saline IV 999 mls/hr ONETIME KATELYN Administration Discontinued Medications Generic Name Dose Route Start Last Admin Trade Name Freq PRN Reason Stop Dose Admin Potassium Chloride 10 meq/ 100 mls @ 50 mls/hr 08/12/17 15:39 08/12/17 15:53 Premix IV 08/12/17 17:38 50 mls/hr ASDIRECTED ONE Administration Ondansetron HCl 4 mg 08/12/17 14:29 08/12/17 14:47 Zofran IVPUSH 08/12/17 14:30 4 mg ONETIME ONE Administration Potassium Chloride 40 meq 08/12/17 15:56 08/12/17 16:00 Klor-Con M20 PO 08/12/17 15:57 40 meq ONETIME ONE Administration - Re-Assessments/Exams Free Text/Narrative Re-Assessment/Exam: 08/12/17 15:22. Serum potassium came back quite low at this 2.6. White blood count somewhat low at 1500, dif still pending. 08/12/17. We did give 10 mEq KCl IV. We have given 1 L of normal saline IV. Two -view abdomen x-ray is unremarkable. We also did give 40 mEq KCl oral. White blood count low at 1500 but relatively normal differential. No major chest or abdominal discomfort while here in the ED. Afebrile. Discharge instructions as documented. Departure - Departure Time of Disposition: 18:16 Disposition: Home, Self-Care 01 Condition: Fair Clinical Impression: Hypokalemia Abdominal pain Qualifiers: Abdominal location: lower abdomen, unspecified Qualified Code(s): R10.30 - Lower abdominal pain, unspecified - Discharge Information Prescriptions: Potassium Chloride 20 meq PO DAILY #14 tablet.er Instructions: Hypokalemia Referrals: Mario Isaacs Jr, MD [Primary Care Provider] - Forms: ED Department Discharge Additional Instructions: Try drink plenty of water to maintain hydration, try eat regular snacks and meals, your potassium was very low today at 2.6. You have been given potassium IV and also 40 mEq potassium orally. Continue potassium 20 no equivalents daily as prescribed. Follow-up clinic early next week for recheck, call for appointment. Return to ED as needed if symptoms worsening in any way. - My Orders Last 24 Hours: My Active Orders 08/12/17 14:15 Sodium Chloride 0.9% [Normal Saline] 1,000 ml IV ONETIME - Assessment/Plan Last 24 Hours: My Active Orders 08/12/17 14:15 Sodium Chloride 0.9% [Normal Saline] 1,000 ml IV ONETIME
[2017-08-12] MEDS ORDERED: Ondansetron 4 MG/2 ML SDV IVPUSH ONE (14:29)
--- NOTE | 2017-08-12 15:23 | CR ---
Abdomen: Supine and upright views of the abdomen were obtained. Comparison: Prior abdominal x-ray of 04/03/17. Scattered gas within small bowel and colon is seen which appears within normal limits. Calcifications are seen within the pelvis which are compatible with phleboliths. No free air is seen. Bony structures appear within normal limits. No discrete soft tissue abnormality is seen. Impression: 1. Nonspecific two-view abdominal study as described above. Diagnostic code #1
[2017-08-12] MEDS ORDERED: Potassium Chloride 10 MEQ in Premix Bag 1 BAG IV ONE (15:39)
[2017-08-12] MEDS ORDERED: Potassium Chloride 20 MEQ Tab.ER PO ONE (15:56)
== END 2017-08-12 18:25 | disposition home or self-care (01) ==
LOC: JD.ED 13:29
DX: E87.6 Hypokalemia (principal); R10.30 Lower abdominal pain, unspecified; I10 Essential (primary) hypertension; E11.9 Type 2 diabetes mellitus without complications; Z79.899 Other long term (current) drug therapy
CPT/HCPCS: 36415; 74019; 80053; 83605; 83690; 85025; 96361; 96365; 96366; 96375; 99284; A9270; J2405; J3480; J7040; 99283

== ENCOUNTER 2017-09-07 10:27 | Emergency (ER) | payer MEDICAID ==
--- NOTE | 2017-09-07 12:16 | EDM.PDOC ---
ED HPI GENERAL MEDICAL PROBLEM - General Chief Complaint: Tube Replacement Stated Complaint: PORT RE INSERTION Time Seen by Provider: 09/07/17 11:13 Source of Information: Reports: Patient History Limitations: Reports: No Limitations - History of Present Illness INITIAL COMMENTS - FREE TEXT/NARRATIVE: 57-year-old male presents for evaluation treatment of [place] with his PICC line. Reportedly the patient took his shirt off today and disconnected part of the PICC line. He states he currently has this for fluids which he receives every week on Mondays. Patient has a history of HIV. Currently being managed by Dr. Haskins and Dr. Gonzalez in [place]. - Related Data Allergies Allergy/AdvReac Type Severity Reaction Status Date / Time No Known Drug Allergies Allergy Other Verified 09/07/17 10:56 Home Meds: Home Meds Abacavir/Dolutegravir/Lamivudi [Triumeq Tablet] 1 tab PO DAILY 01/19/17 [History ] Carvedilol 6.25 mg PO BID 08/12/17 [History] Ciprofloxacin [IJD: Ciprofloxacin HCl] 500 mg PO BID 08/12/17 [History] Clarithromycin 500 mg PO BID 08/12/17 [History] Ethambutol 400 mg PO BID 08/12/17 [History] Hydrocortisone 5 mg PO DAILY 08/12/17 [History] Lisinopril 5 mg PO DAILY 08/12/17 [History] Mirtazapine 15 mg PO BEDTIME 08/12/17 [History] Potassium Chloride 20 meq PO DAILY #14 tablet.er 08/12/17 [Rx] Raltegravir [Isentress] 400 mg PO BID 08/12/17 [History] Past Medical History HEENT History: Reports: Other (See Below) Other HEENT History: wears glasses Cardiovascular History: Reports: Hypertension Genitourinary History: Reports: Other (See Below) Other Genitourinary History: Kidney failure in 2016 due to overwork per MD Psychiatric History: Reports: Anxiety, Depression Endocrine/Metabolic History: Reports: Diabetes, Type II Other Endocrine/Metabolic History: pre-diabetic. Immunologic History: Reports: HIV, Other (See Below) Other Immunologic History: Hx MRSA - Infectious Disease History Infectious Disease History: Reports: HIV-Human Immunodeficiency Virus, MRSA, Other (See Below) Other Infectious Disease History: Strep throat in 2015; MRSA positive 2016. HIV positive diagnosed in November or October of this year. Currently starting antiviral therapy in November of this year. Is followed by Dr. Haskins infectious disease expert in [place]. - Past Surgical History HEENT Surgical History: Reports: None Endocrine Surgical History: Reports: None Social & Family History - Family History Family Medical History: Noncontributory - Tobacco Use Smoking Status *Q: Never Smoker Second Hand Smoke Exposure: No - Caffeine Use Caffeine Use: Reports: Coffee Other Caffeine Use: sometimes - Recreational Drug Use Recreational Drug Use: No - Living Situation & Occupation Living situation: Reports: Single Occupation: Employed (Works as a schoolteacher.) ED ROS GENERAL - Review of Systems Review Of Systems: ROS reveals no pertinent complaints other than HPI. ED EXAM, GENERAL - Physical Exam Exam: See Below Exam Limited By: No Limitations General Appearance: Alert, WD/WN, No Apparent Distress, Thin Respiratory/Chest: No Respiratory Distress Extremities: Other (PICC line to the left anterior upper arm) Neurological: Alert, Normal Cognition Psychiatric: Normal Affect, Normal Mood Skin Exam: Warm, Dry, Normal Color Course - Vital Signs Last Recorded V/S: Last Vital Signs Temp 36.5 C 09/07/17 10:40 Pulse 64 09/07/17 12:25 Resp 17 09/07/17 12:25 BP 151/95 H 09/07/17 12:25 Pulse Ox 100 09/07/17 12:25 - Re-Assessments/Exams Free Text/Narrative Re-Assessment/Exam: 09/07/17 12:10 Chip Venegas CRNA, came and evaluated the PICC line. Please see that note for complete details. PICC line is flushing adequately. No complications. Will discharge home at this time. Departure - Departure Time of Disposition: 12:14 Disposition: Home, Self-Care 01 Condition: Fair Clinical Impression: S/P PICC central line placement - Discharge Information Instructions: PICC Home Care Guide Referrals: Prince Gregory MD [Primary Care Provider] - Forms: ED Department Discharge Additional Instructions: continue with your current plan of care and follow-up with infectious disease team as needed. Please return to the ER if your symptoms change or worsen.
[2017-09-07 12:36] VITALS: BP 151/95
--- NOTE | 2017-09-07 12:53 | PCM.SN ---
- Free Text/Narrative Note: PICC repair in ED Start- 1130 End- 1200 Called to ED regarding a patient with a nonfunctional PICC. Upon arrival the distal portion of the PICC connecter was from the catheter. The entire dressing was taken off and the PICC was in at 46cm at the skin. The entire site was cleansed with chloraprep including the actual PICC tubing and connector itself. A sterile scissors was used to cut the catheter proximal of the connector. The catheter was again cleansed with chloraprep before the new connector was installed with a new cap. The catheter abner back blood well and flushed fine. A sterile tegaderm with CHG was applied over the site. Connector secured with a stat lock and reinforced with tape. Patient tolerated procedure well. Chip Venegas, PAID SEARCH MARKETING STRATEGIST
== END 2017-09-07 12:25 | disposition home or self-care (01) ==
LOC: JD.ED 10:27
DX: Z95.828 Presence of other vascular implants and grafts (principal); B20 Human immunodeficiency virus [HIV] disease; I10 Essential (primary) hypertension; E11.9 Type 2 diabetes mellitus without complications; Z79.899 Other long term (current) drug therapy
CPT/HCPCS: 99283; 99284

== ENCOUNTER 2017-10-21 14:48 | Emergency (ER) | payer MEDICAID, SELFPAY ==
[2017-10-21] MEDS ORDERED: Sodium Chloride 0.9% 10 ML Syringe FLUSH PRN (14:57)
[2017-10-21] MEDS ORDERED: cefTRIAXone 2 GM in Sodium Chloride 0.9% 100 ML IV ONE (14:59)
[2017-10-21] MEDS ORDERED: Sodium Chloride 0.9% 1,000 ML IV SCH (15:00)
[2017-10-21 15:11] VITALS: BP 152/129
[2017-10-21] MEDS ORDERED: Albuterol/Ipratropium 3.0-0.5 MG/3 ML Neb Soln NEB ONE ×2 (15:12→18:13)
--- NOTE | 2017-10-21 16:26 | CR ---
Chest: Portable view of the chest was obtained. Comparison: Prior chest x-ray of 04/03/17. Heart is enlarged. Diffuse increased density within both sides of the chest are seen. Findings most likely due to pulmonary vascular congestion and pulmonary edema. Bony structures are grossly intact. Impression: 1. Diffuse increased density of both sides of the chest most likely due to pulmonary vascular congestion and pulmonary edema Diagnostic code #3
--- NOTE | 2017-10-21 16:46 | PCM.SN ---
- Free Text/Narrative Note: Called to ED for a patient with difficult IV access. Multiple attempts by nursing staff with no success. Left forearm prepped with chloraprep. 20ga 1.88 " IV catheter placed x1 attempt. Good blood return. Pulled back 7ml for lab blood cultures. Flushes well. Secured with sterile tegaderm and tape. Report to RN. Chip Venegas, AUTOMOTIVE PARTS PERSON
[2017-10-21] MEDS ORDERED: SODIUM CHLORIDE 0.9% IV ONE (17:01)
--- NOTE | 2017-10-21 17:24 | EDM.PDOC ---
ED HPI GENERAL MEDICAL PROBLEM - General Chief Complaint: General Stated Complaint: [facility] Time Seen by Provider: 10/21/17 14:53 Source of Information: Reports: Patient, EMS History Limitations: Reports: No Limitations - History of Present Illness INITIAL COMMENTS - FREE TEXT/NARRATIVE: The patient presents by [facility] for shortness of breath. The patient has HIV. He is seeing Dr Gregory and Dr Gonzalez. He had a PICC line in his left arm that was hooked up to some saline. He is not sure where it came from and the [facility] did not give him fluids to go home with. He has been coughing and short of breath for 3 days. He has chills. He has not had an appetite for a few days. He has no chest pain. He has no abdominal pain, nausea or vomiting. He has no lung problems such as asthma or COPD. Onset: Gradual Duration: Day(s): (3) Severity: Moderate Improves with: Reports: None Worsens with: Reports: None Associated Symptoms: Reports: Cough, cough w sputum, Fever/Chills, Loss of Appetite, Shortness of Breath. Denies: Chest Pain, Headaches, Nausea/Vomiting - Related Data Allergies Allergy/AdvReac Type Severity Reaction Status Date / Time No Known Drug Allergies Allergy Other Verified 09/07/17 10:56 Home Meds: Home Meds Abacavir/Dolutegravir/Lamivudi [Triumeq Tablet] 1 tab PO DAILY 01/19/17 [History ] Carvedilol 6.25 mg PO BID 08/12/17 [History] Ciprofloxacin [IJD: Ciprofloxacin HCl] 500 mg PO BID 08/12/17 [History] Clarithromycin 500 mg PO BID 08/12/17 [History] Ethambutol 400 mg PO BID 08/12/17 [History] Hydrocortisone 5 mg PO DAILY 08/12/17 [History] Lisinopril 5 mg PO DAILY 08/12/17 [History] Mirtazapine 15 mg PO BEDTIME 08/12/17 [History] Potassium Chloride 20 meq PO DAILY #14 tablet.er 08/12/17 [Rx] Raltegravir [Isentress] 400 mg PO BID 08/12/17 [History] Past Medical History HEENT History: Reports: Other (See Below) Other HEENT History: wears glasses Cardiovascular History: Reports: Hypertension Genitourinary History: Reports: Other (See Below) Other Genitourinary History: Kidney failure in 2016 due to overwork per MD Psychiatric History: Reports: Anxiety, Depression Endocrine/Metabolic History: Reports: Diabetes, Type II Other Endocrine/Metabolic History: pre-diabetic. Immunologic History: Reports: HIV, Other (See Below) Other Immunologic History: Hx MRSA - Infectious Disease History Infectious Disease History: Reports: HIV-Human Immunodeficiency Virus, MRSA, Other (See Below) Other Infectious Disease History: Strep throat in 2016; MRSA positive 2016. HIV positive diagnosed in November or October of this year. Currently starting antiviral therapy in November of this year. Is followed by Dr. Haskins infectious disease expert in [place]. - Past Surgical History HEENT Surgical History: Reports: None Endocrine Surgical History: Reports: None Social & Family History - Family History Family Medical History: Noncontributory - Tobacco Use Smoking Status *Q: Unknown Ever Smoked - Caffeine Use Caffeine Use: Reports: None Other Caffeine Use: sometimes - Recreational Drug Use Recreational Drug Use: No - Living Situation & Occupation Living situation: Reports: Single Occupation: Employed (Works as a schoolteacher.) ED ROS GENERAL - Review of Systems Review Of Systems: See Below Constitutional: Reports: Chills, Malaise, Weakness, Fatigue HEENT: Reports: No Symptoms Respiratory: Reports: Shortness of Breath, Cough Cardiovascular: Reports: No Symptoms Endocrine: Reports: No Symptoms GI/Abdominal: Reports: No Symptoms : Reports: No Symptoms Musculoskeletal: Reports: No Symptoms Skin: Reports: No Symptoms ED EXAM, GENERAL - Physical Exam Exam: See Below Exam Limited By: No Limitations General Appearance: Alert, Moderate Distress Ears: Normal External Exam Nose: Normal Inspection Head: Atraumatic, Normocephalic Neck: Normal Inspection Respiratory/Chest: Decreased Breath Sounds, Rhonchi Cardiovascular: Regular Rate, Rhythm, No Edema, No Murmur GI/Abdominal: Soft, Non-Tender, No Organomegaly, No Mass Back Exam: Normal Inspection Extremities: Other (PICC line in the left arm with most of the op site missing. There is no erythema but there is some drainage.) Neurological: Alert, Oriented, No Motor/Sensory Deficits Course - Vital Signs Last Recorded V/S: Last Vital Signs Temp 96 F 10/21/17 14:54 Pulse 124 H 10/21/17 14:54 Resp 18 10/21/17 14:54 BP 152/129 H 10/21/17 14:54 Pulse Ox 99 10/21/17 15:13 - Orders/Labs/Meds Orders: Active Orders 24 hr Category Date Time Status Cardiac Monitoring [RC] . DIRECTED Care 10/21/17 14:57 Active Oxygen Therapy [RC] PRN Care 10/21/17 14:58 Active Peripheral IV Care [RC] . DIRECTED Care 10/21/17 14:58 Active RT Aerosol Therapy [RC] ASDIRECTED Care 10/21/17 15:13 Active CULTURE BLOOD [BC] Stat Lab 10/21/17 15:35 Received CULTURE BLOOD [BC] Stat Lab 10/21/17 16:20 Received Sodium Chloride 0.9% [Normal Saline] 1,000 ml Med 10/21/17 15:00 Active IV ASDIRECTED Sodium Chloride 0.9% [Normal Saline] 1,625 ml Med 10/21/17 17:01 Active IV ONETIME Sodium Chloride 0.9% [Saline Flush] Med 10/21/17 14:57 Active 10 ml FLUSH ASDIRECTED PRN Blood Culture x2 Reflex Set [OM.PC] Stat Oth 10/21/17 14:59 Ordered Peripheral IV Insertion Adult [OM.PC] Stat Oth 10/21/17 14:57 Ordered Medication Orders Sodium Chloride (Normal Saline) 1,000 mls @ 125 mls/hr IV ASDIRECTED KATELYN Last Admin: 10/21/17 16:23 Dose: 125 mls/hr Sodium Chloride (Normal Saline) 1,625 mls @ 1,000 mls/hr IV ONETIME ONE Stop: 10/21/17 18:38 Last Admin: 10/21/17 17:30 Dose: 1,000 mls/hr Sodium Chloride (Saline Flush) 10 ml FLUSH ASDIRECTED PRN PRN Reason: Keep Vein Open Last Admin: 10/21/17 16:26 Dose: 10 ml Labs: Laboratory Tests 10/21/17 10/21/17 10/21/17 Range/Units 16:20 16:20 16:20 WBC 3.65 L (4.23-9.07) K/mm3 RBC 3.66 L (4.63-6.08) M/mm3 Hgb 10.9 L (13.7-17.5) gm/L Hct 34.4 L (40.1-51.0) % MCV 94.0 H (79.0-92.2) fl MCH 29.8 (25.7-32.2) pg MCHC 31.7 L (32.2-35.5) g/dl RDW Std Deviation 57.7 H (35.1-43.9) fL Plt Count 292 (163-337) K/mm3 MPV 9.1 L (9.4-12.3) fl Neut % (Auto) 65.3 (34.0-67.9) % Lymph % (Auto) 21.1 L (21.8-53.1) % Dixie % (Auto) 6.8 (5.3-12.2) % Eos % (Auto) 4.1 (0.8-7.0) Baso % (Auto) 0.8 (0.1-1.2) % Neut # (Auto) 2.38 (1.78-5.38) K/mm3 Lymph # (Auto) 0.77 L (1.32-3.57) K/mm3 Dixie # (Auto) 0.25 L (0.30-0.82) K/mm3 Eos # (Auto) 0.15 (0.04-0.54) K/mm3 Baso # (Auto) 0.03 (0.01-0.08) K/mm3 Manual Slide Review Abnormal smear Puncture Site ABG pH (7.35-7.45) ABG pCO2 (35.0-45.0) mmHg ABG pO2 (80.0-100.0) mmHg ABG HCO3 (22.0-26.0) meq/L ABG O2 Saturation (96.0-97.0) % ABG Base Excess (-2-2.0) Errol Test A-a Gradient mmHg O2 Delivery Device Oxygen Flow Rate FiO2 (21.00-100.00) % Sodium 140 (136-145) mEq/L Potassium 3.8 (3.5-5.1) mEq/L Chloride 108 H (98-107) mEq/L Carbon Dioxide 20 L (21-32) mEq/L Anion Gap 15.8 H (5-15) BUN 16 (7-18) mg/dL Creatinine 1.3 (0.7-1.3) mg/dL Est Cr Clr Drug Dosing 48.85 mL/min Estimated GFR (MDRD) > 60 (>60) mL/min BUN/Creatinine Ratio 12.3 L (14-18) Glucose 164 H (74-106) mg/dL Lactic Acid 3.1 H (0.4-2.0) mmol/L Calcium 8.4 L (8.5-10.1) mg/dL Total Bilirubin 0.4 (0.2-1.0) mg/dL AST 54 H (15-37) U/L ALT 38 (16-63) U/L Alkaline Phosphatase 362 H (46-116) U/L Total Protein 7.5 (6.4-8.2) g/dl Albumin 2.0 L (3.4-5.0) g/dl Globulin 5.5 gm/dL Albumin/Globulin Ratio 0.4 L (1-2) // Range/Units 17:30 WBC (4.23-9.07) K/mm3 RBC (4.63-6.08) M/mm3 Hgb (13.7-17.5) gm/L Hct (40.1-51.0) % MCV (79.0-92.2) fl MCH (25.7-32.2) pg MCHC (32.2-35.5) g/dl RDW Std Deviation (35.1-43.9) fL Plt Count (163-337) K/mm3 MPV (9.4-12.3) fl Neut % (Auto) (34.0-67.9) % Lymph % (Auto) (21.8-53.1) % Dixie % (Auto) (5.3-12.2) % Eos % (Auto) (0.8-7.0) Baso % (Auto) (0.1-1.2) % Neut # (Auto) (1.78-5.38) K/mm3 Lymph # (Auto) (1.32-3.57) K/mm3 Dixie # (Auto) (0.30-0.82) K/mm3 Eos # (Auto) (0.04-0.54) K/mm3 Baso # (Auto) (0.01-0.08) K/mm3 Manual Slide Review Puncture Site Rt radial ABG pH 7.30 L (7.35-7.45) ABG pCO2 37.1 (35.0-45.0) mmHg ABG pO2 82.0 (80.0-100.0) mmHg ABG HCO3 17.7 L (22.0-26.0) meq/L ABG O2 Saturation 95.7 L (96.0-97.0) % ABG Base Excess -7.5 L (-2-2.0) Errol Test Positive A-a Gradient 153 mmHg O2 Delivery Device Simple mask Oxygen Flow Rate 6.0 FiO2 44.00 (21.00-100.00) % Sodium (136-145) mEq/L Potassium (3.5-5.1) mEq/L Chloride (98-107) mEq/L Carbon Dioxide (21-32) mEq/L Anion Gap (5-15) BUN (7-18) mg/dL Creatinine (0.7-1.3) mg/dL Est Cr Clr Drug Dosing mL/min Estimated GFR (MDRD) (>60) mL/min BUN/Creatinine Ratio (14-18) Glucose (74-106) mg/dL Lactic Acid (0.4-2.0) mmol/L Calcium (8.5-10.1) mg/dL Total Bilirubin (0.2-1.0) mg/dL AST (15-37) U/L ALT (16-63) U/L Alkaline Phosphatase (46-116) U/L Total Protein (6.4-8.2) g/dl Albumin (3.4-5.0) g/dl Globulin gm/dL Albumin/Globulin Ratio (1-2) Meds: Medications Generic Name Dose Route Start Last Admin Trade Name Freq PRN Reason Stop Dose Admin Sodium Chloride 1,000 mls @ 125 mls/hr 10/21/17 15:00 10/21/17 16:23 Normal Saline IV 125 mls/hr ASDIRECTED KATELYN Administration Sodium Chloride 1,625 mls @ 1,000 mls/hr 10/21/17 17:01 10/21/17 17:30 Normal Saline IV 10/21/17 18:38 1,000 mls/hr ONETIME ONE Administration Sodium Chloride 10 ml 10/21/17 14:57 10/21/17 16:26 Saline Flush FLUSH 10 ml ASDIRECTED PRN Administration Keep Vein Open Discontinued Medications Generic Name Dose Route Start Last Admin Trade Name Freq PRN Reason Stop Dose Admin Albuterol/Ipratropium 3 ml 10/21/17 15:12 10/21/17 15:44 Duoneb 3.0-0.5 Mg/3 Ml NEB 10/21/17 15:13 3 ml ONETIME ONE Administration Ceftriaxone Sodium 2 gm/ 100 mls @ 100 mls/hr 10/21/17 14:59 10/21/17 16:23 Sodium Chloride IV 10/21/17 15:58 100 mls/hr ONETIME ONE Administration - Re-Assessments/Exams Free Text/Narrative Re-Assessment/Exam: 10/21/17 18:15 I ordered oxygen, IV NS at 125mL/hr, labs, CXR and blood cultures. He needed a bear hugger to help with his low temp. I had my nurse take out the PICC line and get a culture from it. His CXR shows bilateral perihilar infiltrates. His WBC was low at 3.65. His Hgb was low at 10.9. His anion gap is elevated at 15.8. His glucose is 165. His lactic acid is elevated at 3.1. His alk phos is elevated at 362. His pH is low at 7.3. His pCO2 is normal at 37.1. His pO2 is normal at 82. He is septic from pneumonia. After the blood cultures I ordered rocephin 2 grams IV and a 1600ml bolus for the 30mls/kg. I called my hospitalist Dr Ortiz and she recommended the patient go to [place]. I called and talked with Dr Reyes and he accepted the patient. I ordered 2 duoneb treatments and azithromycin 500mg IV. Departure - Departure Time of Disposition: 18:25 Disposition: DC/Tfer to Acute Hospital 02 Condition: Poor Clinical Impression: HIV positive Pneumonia Qualifiers: Pneumonia type: due to unspecified organism Laterality: right Lung location: lower lobe of lung Qualified Code(s): J18.1 - Lobar pneumonia, unspecified organism Sepsis Qualifiers: Sepsis type: sepsis due to unspecified organism Qualified Code(s): A41.9 - Sepsis, unspecified organism - Discharge Information Referrals: Prince Gregory MD [Primary Care Provider] - Forms: ED Department Discharge - My Orders Last 24 Hours: My Active Orders 10/21/17 14:57 Cardiac Monitoring [RC] . DIRECTED Sodium Chloride 0.9% [Saline Flush] 10 ml FLUSH ASDIRECTED PRN Peripheral IV Insertion Adult [OM.PC] Stat 10/21/17 14:58 Oxygen Therapy [RC] PRN Peripheral IV Care [RC] . DIRECTED 10/21/17 14:59 Blood Culture x2 Reflex Set [OM.PC] Stat 10/21/17 15:00 Sodium Chloride 0.9% [Normal Saline] 1,000 ml IV ASDIRECTED 10/21/17 15:13 RT Aerosol Therapy [RC] ASDIRECTED 10/21/17 15:35 CULTURE BLOOD [BC] Stat 10/21/17 16:20 CULTURE BLOOD [BC] Stat 10/21/17 17:01 Sodium Chloride 0.9% [Normal Saline] 1,625 ml IV ONETIME - Assessment/Plan Last 24 Hours: My Active Orders 10/21/17 14:57 Cardiac Monitoring [RC] . DIRECTED Sodium Chloride 0.9% [Saline Flush] 10 ml FLUSH ASDIRECTED PRN Peripheral IV Insertion Adult [OM.PC] Stat 10/21/17 14:58 Oxygen Therapy [RC] PRN Peripheral IV Care [RC] . DIRECTED 10/21/17 14:59 Blood Culture x2 Reflex Set [OM.PC] Stat 10/21/17 15:00 Sodium Chloride 0.9% [Normal Saline] 1,000 ml IV ASDIRECTED 10/21/17 15:13 RT Aerosol Therapy [RC] ASDIRECTED 10/21/17 15:35 CULTURE BLOOD [BC] Stat 10/21/17 16:20 CULTURE BLOOD [BC] Stat 10/21/17 17:01 Sodium Chloride 0.9% [Normal Saline] 1,625 ml IV ONETIME
[2017-10-21] MEDS ORDERED: Azithromycin 500 MG in Sodium Chloride 0.9% 250 ML IV ONE (18:13)
== END 2017-10-21 19:00 ==
LOC: JD.ED 14:48
DX: A41.9 Sepsis, unspecified organism (principal); J18.9 Pneumonia, unspecified organism; B20 Human immunodeficiency virus [HIV] disease; I10 Essential (primary) hypertension; E11.9 Type 2 diabetes mellitus without complications; Z79.899 Other long term (current) drug therapy
CPT/HCPCS: 36415; 36600; 71045; 80053; 82803; 83605; 85025; 87040; 94640; 96361; 96365; 96367; 99285; J0456; J0696; J7030; J7040; J7050